=== PATIENT | female | born 1990 | race Two or more races ===

== ENCOUNTER 2016-04-24 22:33 | Inpatient (IN) | payer MEDICAID ==
[~2016-04-24] VITALS: Ht 162.6 cm; Wt 66.2 kg
[~2016-04-24 22:33] MED LIST: HUMALOG SUBCUT; LANTUS SUBCUT
[2016-04-24 23:14] LABS: Basophils # (auto) 0 uL; Basophils % (auto) 0.5 % (0.0-2.0); Eosinophils # (auto) 0 uL; Eosinophils % (auto) 0.1 % (0.0-7.0); Hematocrit 42.7 % (36.0-46.0); Lymphocytes # (auto) 1.1 uL; Lymphocytes % (auto) 10.1 % (10.0-50.0); Mean Corpuscular Hemoglobin 29.7 pg (28.0-32.0); Mean Corpuscular Hgb Conc. 32.7 g/dL (32.0-36.0); Mean Corpuscular Volume 90.7 fL (80.0-100.0); Mean Platelet Volume 6.6 fL (7.4-10.4); Monocytes # (auto) 0.9 uL; Monocytes % (auto) 8.1 % (0.0-12.0); Neutrophils # (auto) 8.6 uL; Neutrophils % (auto) 81.2 % (37.0-80.0); Platelet Count (auto) 459 10^3/uL (140-450); Red Cell Distribution Width 12.9 % (11.6-16.0); White Blood Cell 10.6 10^3/uL (4.4-10.8)
[2016-04-24 23:29] LABS: Albumin 3.2 g/dL (3.4-5.0); BUN/Creatinine Ratio 12.7; Calcium 8.3 mg/dL (8.5-10.1); Potassium 3.6 mmol/L (3.5-5.1)
[2016-04-24 23:38] LABS: Bilirubin, Total 0.3 mg/dL (0.2-1.0); Total Protein 7.1 g/dL (6.4-8.2)
[2016-04-24] MEDS ORDERED: SODIUM CHLORIDE 0.9% 2,000 ML IV ONE (23:45)
[2016-04-25] MEDS ORDERED: ONDANSETRON HCL 4 MG/2 ML VIAL IV ONE
[2016-04-25] MEDS ORDERED: MORPHINE SULFATE 4 MG/ML SYRG IV ONE
[2016-04-25] MEDS ORDERED: SODIUM CHLORIDE 0.9% 1,000 ML IV SCH ×2 (02:50→13:30)
[2016-04-25] MEDS ORDERED: TEMAZEPAM 15 MG CAP PO PRN (03:00)
[2016-04-25] MEDS ORDERED: DEXTROSE (50%) 50ML SYRG IV PRN (03:00)
[2016-04-25] MEDS ORDERED: ACETAMINOPHEN 325 MG TAB PO PRN (03:00)
[2016-04-25] MEDS ORDERED: cefTRIAXone 1GM/50ML D5W 50 ML IV ONE (03:00)
[2016-04-25] MEDS ORDERED: PANTOPRAZOLE SODIUM 40 MG/10 ML VIAL IV ONE (03:00)
[2016-04-25] MEDS: ONDANSETRON HCL 4 MG/2 ML VIAL IV PRN ×5 (03:11→23:04)
[2016-04-25] MEDS: MORPHINE SULF INJ 2 MG/ML SYRINGE 1ML IV PRN ×5 (03:11→23:04)
[2016-04-25 04:00] VITALS: BP 120/70
[2016-04-25] MEDS ORDERED: INSLANTI SC (05:44)
[2016-04-25] MEDS ORDERED: PNEUMOCOCCAL VACC POLYS 25 MCG/0.5 ML VIAL IM ONE (05:45)
[2016-04-25] MEDS: InsuLIN REG 1unit/0.01ml Soln (100units/ml) SC SCH ×3 (06:00→18:00)
[2016-04-25] MEDS: ACCU-CHEK COMFORT CURVE STRIP VI SCH ×3 (06:29→18:27)
[2016-04-25] MEDS ORDERED: D5W/SOD CHLO 0.9% 1,000 ML IV SCH (07:00)
[2016-04-25] MEDS ORDERED: cefTRIAXone 1GM/50ML D5W 50 ML IV SCH (09:00)
[2016-04-25 09:17] VITALS: BP 118/70
[2016-04-25] MEDS: PANTOPRAZOLE SODIUM 40 MG/10 ML VIAL IV SCH (09:21)
[2016-04-25 11:52] LABS: Hepatitis B Surface Antibody Positive
[2016-04-25 13:00] VITALS: BP 115/68
[2016-04-25] MEDS ORDERED: metroNIDAZOLE 500MG/100ML 100 ML IV SCH (14:00)
[2016-04-25] MEDS ORDERED: LACTATED RINGER'S 1,000 ML IV ONE (14:45)
[2016-04-25 17:14] VITALS: BP 118/69
[2016-04-25 21:03] VITALS: BP 115/70
[2016-04-26] MEDS: InsuLIN REG 1unit/0.01ml Soln (100units/ml) SC SCH ×4 (05:34→17:13)
[2016-04-26] MEDS: ACCU-CHEK COMFORT CURVE STRIP VI SCH ×4 (05:34→17:13)
[2016-04-26 05:58] LABS: INR 1.17 (0.9-1.15)
[2016-04-26 06:00] LABS: Basophils # (auto) 0 uL; Basophils % (auto) 0.5 % (0.0-2.0); Eosinophils # (auto) 0.2 uL; Eosinophils % (auto) 2.7 % (0.0-7.0); Hemoglobin 13.4 g/dL (12.2-16.2); Lymphocytes # (auto) 1.5 uL; Lymphocytes % (auto) 21.4 % (10.0-50.0); Mean Corpuscular Hgb Conc. 32.5 g/dL (32.0-36.0); Mean Corpuscular Volume 92.2 fL (80.0-100.0); Mean Platelet Volume 7.2 fL (7.4-10.4); Monocytes # (auto) 0.6 uL; Monocytes % (auto) 9.3 % (0.0-12.0); Neutrophils # (auto) 4.6 uL; Neutrophils % (auto) 66.1 % (37.0-80.0); Platelet Count (auto) 332 10^3/uL (140-450); White Blood Cell 6.9 10^3/uL (4.4-10.8)
[2016-04-26 06:06] LABS: Potassium 3.7 mmol/L (3.5-5.1)
[2016-04-26 06:12] LABS: Albumin 2.5 g/dL (3.4-5.0); Calcium 7.6 mg/dL (8.5-10.1); Magnesium 2.3 mg/dL (1.6-2.6)
[2016-04-26 06:15] LABS: Bilirubin, Total 0.8 mg/dL (0.2-1.0); Total Protein 6.4 g/dL (6.4-8.2)
[2016-04-26 09:00] VITALS: BP 107/64
[2016-04-26] MEDS: PANTOPRAZOLE SODIUM 40 MG/10 ML VIAL IV SCH (09:04)
[2016-04-26] MEDS: ONDANSETRON HCL 4 MG/2 ML VIAL IV PRN ×3 (09:05→19:55)
[2016-04-26] MEDS: MORPHINE SULF INJ 2 MG/ML SYRINGE 1ML IV PRN ×2 (09:06→15:52)
[2016-04-26] MEDS ORDERED: SODIUM CHLORIDE 0.9% 1,000 ML IV SCH (11:00)
[2016-04-26] MEDS: LACTATED RINGER'S 1,000 ML IV SCH ×3 (12:27→19:56)
[2016-04-26 13:00] VITALS: BP 99/59
[2016-04-26 17:00] VITALS: BP 104/62
[2016-04-26] MEDS: HYDROcodone-ACET 5/325MG TAB PO PRN (19:56)
[2016-04-26 21:55] VITALS: BP 97/55
[2016-04-27] MEDS: ACCU-CHEK COMFORT CURVE STRIP VI SCH ×5 (00:20→23:06)
[2016-04-27 05:07] VITALS: BP 101/63
[2016-04-27] MEDS: LACTATED RINGER'S 1,000 ML IV SCH ×3 (05:46→21:20)
[2016-04-27] MEDS: InsuLIN REG 1unit/0.01ml Soln (100units/ml) SC SCH ×5 (05:55→23:26)
[2016-04-27 05:58] LABS: Basophils # (auto) 0 uL; Basophils % (auto) 0.5 % (0.0-2.0); Eosinophils # (auto) 0.4 uL; Eosinophils % (auto) 4.5 % (0.0-7.0); Hematocrit 37.8 % (36.0-46.0); Hemoglobin 12.2 g/dL (12.2-16.2); Lymphocytes # (auto) 1.8 uL; Lymphocytes % (auto) 22.8 % (10.0-50.0); Mean Corpuscular Hemoglobin 29.5 pg (28.0-32.0); Mean Corpuscular Hgb Conc. 32.2 g/dL (32.0-36.0); Mean Corpuscular Volume 91.7 fL (80.0-100.0); Mean Platelet Volume 6.9 fL (7.4-10.4); Monocytes # (auto) 0.9 uL; Monocytes % (auto) 11.8 % (0.0-12.0); Neutrophils # (auto) 4.8 uL; Neutrophils % (auto) 60.4 % (37.0-80.0); Platelet Count (auto) 327 10^3/uL (140-450); Red Cell Distribution Width 12.4 % (11.6-16.0)
[2016-04-27 06:01] LABS: Prothrombin Time 12.2 sec (9.37-12.3)
[2016-04-27 06:08] LABS: INR 1.18 (0.9-1.15)
[2016-04-27 06:30] LABS: Albumin 2.5 g/dL (3.4-5.0); BUN/Creatinine Ratio 21.7; Bilirubin, Total 0.8 mg/dL (0.2-1.0); Calcium 7.7 mg/dL (8.5-10.1); Magnesium 2.2 mg/dL (1.6-2.6); Potassium 3.5 mmol/L (3.5-5.1)
[2016-04-27 09:00] VITALS: BP 104/63
[2016-04-27] MEDS: PANTOPRAZOLE SODIUM 40 MG/10 ML VIAL IV SCH (09:35)
[2016-04-27] MEDS: HYDROcodone-ACET 5/325MG TAB PO PRN ×2 (12:57→23:53)
[2016-04-27 15:00] VITALS: BP 102/56
[2016-04-27 15:59] VITALS: BP 102/67
[2016-04-27 22:16] VITALS: BP 112/72
[2016-04-28] MEDS: LACTATED RINGER'S 1,000 ML IV SCH ×2 (04:24→10:40)
[2016-04-28 04:53] VITALS: BP 104/67
[2016-04-28] MEDS: ACCU-CHEK COMFORT CURVE STRIP VI SCH ×2 (05:05→12:14)
[2016-04-28] MEDS: InsuLIN REG 1unit/0.01ml Soln (100units/ml) SC SCH ×2 (05:11→12:28)
[2016-04-28 07:20] LABS: Albumin 2.3 g/dL (3.4-5.0); BUN/Creatinine Ratio 9.8; Bilirubin, Direct 0.1 mg/dL (0-0.2); Bilirubin, Total 0.3 mg/dL (0.2-1.0); Calcium 7.5 mg/dL (8.5-10.1); Potassium 3.4 mmol/L (3.5-5.1); Total Protein 5.8 g/dL (6.4-8.2)
[2016-04-28 09:00] VITALS: BP 95/58
[2016-04-28] MEDS: PANTOPRAZOLE SODIUM 40 MG/10 ML VIAL IV SCH (10:30)
[2016-04-28] MEDS ORDERED: POTASSIUM CHL 20 Meq TABLET PO ONE (12:45)
[2016-04-28 13:00] VITALS: BP 107/74
== END 2016-04-28 14:50 | disposition home or self-care (01) | DRG 282 ==
LOC: ER 22:33 → EDBD 22:33 → OVERFLOW 22:34 → CENTRAL 04-25 03:56
PROVIDERS: ADMIT Nurse Practitioner; ATTEND Internal Medicine
DX: K85.90 Acute pancreatitis without necrosis or infection, unspecified (principal); R16.0 Hepatomegaly, not elsewhere classified; K75.89 Other specified inflammatory liver diseases; E87.6 Hypokalemia; E10.9 Type 1 diabetes mellitus without complications; R74.0 Nonspecific elevation of levels of transaminase and lactic acid dehydrogenase [LDH]; Z79.4 Long term (current) use of insulin; Z90.49 Acquired absence of other specified parts of digestive tract; Z23 Encounter for immunization
CPT/HCPCS: 36415; 36600; 74176; 74181; 76705; 80053; 80061; 80076; 82010; 82150; 82784; 82805; 82962; 83036; 83690; 83735; 84443; 84702; 85025; 85049; 85610; 86704; 86706; 86708; 86803; 87040; 87340; 96361; 96365; 96375; C9113; J0696; J1815; J2405; J3490; J7042

== ENCOUNTER 2016-07-10 07:51 | Inpatient (IN) | payer MEDICAID ==
[~2016-07-10] VITALS: Ht 162.6 cm; Wt 71.1 kg
[~2016-07-10 07:51] MED LIST changes: +INSLANTI SC; -LANTUS SUBCUT
[2016-07-10] MEDS ORDERED: PROCHLORPERAZINE EDISYLATE 5 MG/ML 2ML VIAL ONE (08:26)
[2016-07-10] MEDS ORDERED: SODIUM CHLORIDE 0.9% 1,000 ML IV ONE (08:34)
[2016-07-10] MEDS ORDERED: SODIUM CHLORIDE 0.9% 1,000 ML IVB ONE (08:44)
[2016-07-10] MEDS ORDERED: PROCHLORPERAZINE EDISYLATE 5 MG/ML 2ML VIAL IV ONE ×2 (08:45)
[2016-07-10 08:46] LABS: Basophils # (auto) 0 uL; Basophils % (auto) 0.2 % (0.0-2.0); Eosinophils # (auto) 0 uL; Eosinophils % (auto) 0.2 % (0.0-7.0); Hematocrit 53.4 % (36.0-46.0); Hemoglobin 16.8 g/dL (12.2-16.2); Lymphocytes # (auto) 1.6 uL; Lymphocytes % (auto) 13.5 % (10.0-50.0); Mean Corpuscular Hemoglobin 29.5 pg (28.0-32.0); Mean Corpuscular Hgb Conc. 31.5 g/dL (32.0-36.0); Mean Corpuscular Volume 93.6 fL (80.0-100.0); Mean Platelet Volume 7.4 fL (7.4-10.4); Monocytes # (auto) 0.5 uL; Monocytes % (auto) 3.9 % (0.0-12.0); Neutrophils # (auto) 9.9 uL; Neutrophils % (auto) 82.2 % (37.0-80.0); Platelet Count (auto) 321 10^3/uL (140-450); Red Cell Distribution Width 14.8 % (11.6-16.0)
[2016-07-10 09:02] LABS: Albumin 3.9 g/dL (3.4-5.0); BUN/Creatinine Ratio 13.8; Bilirubin, Total 1.1 mg/dL (0.2-1.0); Calcium 9.5 mg/dL (8.5-10.1); Potassium 4.8 mmol/L (3.5-5.1); Total Protein 8.9 g/dL (6.4-8.2)
[2016-07-10] MEDS ORDERED: InsuLIN REG 1unit/0.01ml Soln (100units/ml) IV ONE (09:15)
[2016-07-10] MEDS ORDERED: SODIUM CHLORIDE 0.9% 2,000 ML IV ONE (09:15)
[2016-07-10] MEDS ORDERED: InsuLIN R (HUMAN) 100 UNITS in SODIUM CHL 0.9% 99 ML IV SCH (09:17)
[2016-07-10] MEDS ORDERED: DEXTROSE (50%) 50ML SYRG IV PRN ×2 (09:30→14:45)
[2016-07-10] MEDS ORDERED: ONDANSETRON HCL 4 MG/2 ML VIAL IV ONE (10:00)
[2016-07-10] MEDS: ACCU-CHEK COMFORT CURVE STRIP VI SCH ×13 (10:00→22:57)
[2016-07-10 10:34] LABS: Urine Bilirubin Negative (Negative); Urine Blood Negative /uL (Negative); Urine Color Yellow (Yellow); Urine Nitrite Negative (Negative); Urine RBC 1 /hpf (0 - 4); Urine Squamous Epithelial Cell FEW /hpf (<5); Urine Urobilinogen Normal (Negative)
[2016-07-10 10:35] LABS: Urine Glucose 4+ mg/dL (Normal); Urine Ketone 4+ (Negative)
[2016-07-10] MEDS: SODIUM CHLORIDE 0.9% 1,000 ML IV SCH ×3 (11:24→21:29)
[2016-07-10] MEDS ORDERED: VANCOMYCIN PER PHARMACY 0 MG IV SCH (14:00)
[2016-07-10] MEDS ORDERED: TEMAZEPAM 15 MG CAP PO PRN (14:00)
[2016-07-10] MEDS ORDERED: MORPHINE SULF INJ 2 MG/ML SYRINGE 1ML IV PRN ×2 (14:00)
[2016-07-10] MEDS ORDERED: ACETAMINOPHEN 325 MG TAB PO PRN (14:00)
[2016-07-10] MEDS ORDERED: DOCUSATE SOD 100 MG CAP PO PRN (14:00)
[2016-07-10] MEDS ORDERED: NITROGLYCERIN 0.4 MG SL TAB SL PRN (14:00)
[2016-07-10] MEDS ORDERED: cefTRIAXone 1GM/50ML D5W 50 ML IV ONE (14:00)
[2016-07-10] MEDS: InsuLIN R (HUMAN) 100 UNITS in SODIUM CHL 0.9% 99 ML IV SCH (14:59)
[2016-07-10] MEDS: VANCOMYCIN 1GM/250ML D5W 250 ML IV SCH (15:05)
[2016-07-10 15:19] LABS: REFLEX LACTIC ACID YES OR NO YES
[2016-07-10] MEDS: ONDANSETRON HCL 4 MG/2 ML VIAL IV PRN (17:37)
[2016-07-10 20:23] LABS: Lactic Acid w/Reflex 3.7 mmol/L (0.4-2.0)
[2016-07-10 20:53] LABS: REFLEX LACTIC ACID YES OR NO YES
[2016-07-10] MEDS: FAMOTIDINE 20 MG TAB PO SCH (21:29)
[2016-07-11] VITALS (7 sets, daily range): BP systolic 93–113; BP diastolic 51–61
[2016-07-11] MEDS: ACCU-CHEK COMFORT CURVE STRIP VI SCH ×13 (00:10→17:34)
[2016-07-11] MEDS: SODIUM CHLORIDE 0.9% 1,000 ML IV SCH ×3 (02:02→11:33)
[2016-07-11] MEDS: InsuLIN R (HUMAN) 100 UNITS in SODIUM CHL 0.9% 99 ML IV SCH ×4 (08:05→11:36)
[2016-07-11] MEDS: VANCOMYCIN 1GM/250ML D5W 250 ML IV SCH (09:00)
[2016-07-11] MEDS: ONDANSETRON HCL 4 MG/2 ML VIAL IV PRN ×3 (09:19→22:04)
[2016-07-11] MEDS: FAMOTIDINE 20 MG TAB PO SCH ×2 (09:58→22:03)
[2016-07-11] MEDS: MULTIPLE VITAMIN TAB PO SCH (09:58)
[2016-07-11 10:54] LABS: Basophils # (auto) 0.1 uL; Basophils % (auto) 0.4 % (0.0-2.0); Eosinophils # (auto) 0 uL; Eosinophils % (auto) 0.1 % (0.0-7.0); Hematocrit 38.2 % (36.0-46.0); Hemoglobin 12.5 g/dL (12.2-16.2); Lymphocytes # (auto) 2.1 uL; Mean Corpuscular Hemoglobin 29.8 pg (28.0-32.0); Mean Corpuscular Hgb Conc. 32.8 g/dL (32.0-36.0); Mean Corpuscular Volume 90.8 fL (80.0-100.0); Mean Platelet Volume 6.3 fL (7.4-10.4); Monocytes # (auto) 1.3 uL; Monocytes % (auto) 7.3 % (0.0-12.0); Neutrophils # (auto) 14.1 uL; Neutrophils % (auto) 80.2 % (37.0-80.0); Platelet Count (auto) 138 10^3/uL (140-450); Red Cell Distribution Width 14.8 % (11.6-16.0); White Blood Cell 17.5 10^3/uL (4.4-10.8)
[2016-07-11] MEDS ORDERED: cefTRIAXone 1GM/50ML D5W 50 ML IV SCH (11:00)
[2016-07-11 11:12] LABS: Albumin 2.4 g/dL (3.4-5.0); BUN/Creatinine Ratio 10.4; Bilirubin, Total 0.3 mg/dL (0.2-1.0); Calcium 6.6 mg/dL (8.5-10.1); Potassium 3.4 mmol/L (3.5-5.1); Total Protein 6.2 g/dL (6.4-8.2)
[2016-07-11] MEDS ORDERED: POTASSIUM CHL 20 Meq TABLET PO ONE (11:45)
[2016-07-11] MEDS ORDERED: INSULIN DETEMIR(LEVEMIR) 1unit/0.01ml Soln (100units/ml) SC ONE (11:45)
[2016-07-11] MEDS: InsuLIN REG 1unit/0.01ml Soln (100units/ml) SC SCH ×2 (12:11→17:34)
[2016-07-11] MEDS ORDERED: InsuLIN R (HUMAN) 100 UNITS in SODIUM CHL 0.9% 99 ML IV SCH (14:43)
[2016-07-11] MEDS: HYDROcodone-ACET 5/325MG TAB PO PRN ×2 (17:37→22:02)
[2016-07-11] MEDS: INSULIN DETEMIR(LEVEMIR) 1unit/0.01ml Soln (100units/ml) SC SCH (22:00)
[2016-07-11] MEDS: DEXTROSE (50%) 50ML SYRG IV PRN (22:03)
[2016-07-12] MEDS: ONDANSETRON HCL 4 MG/2 ML VIAL IV PRN (01:51)
[2016-07-12] MEDS: DEXTROSE (50%) 50ML SYRG IV PRN (01:51)
[2016-07-12 05:10] VITALS: BP 113/67
[2016-07-12 05:43] LABS: Basophils # (auto) 0 uL; Basophils % (auto) 0.4 % (0.0-2.0); Eosinophils # (auto) 0.1 uL; Eosinophils % (auto) 1.2 % (0.0-7.0); Hematocrit 35.9 % (36.0-46.0); Hemoglobin 11.8 g/dL (12.2-16.2); Lymphocytes # (auto) 2.1 uL; Lymphocytes % (auto) 22.9 % (10.0-50.0); Mean Corpuscular Hemoglobin 29.5 pg (28.0-32.0); Mean Corpuscular Hgb Conc. 32.9 g/dL (32.0-36.0); Mean Corpuscular Volume 89.6 fL (80.0-100.0); Mean Platelet Volume 6.5 fL (7.4-10.4); Monocytes # (auto) 0.9 uL; Monocytes % (auto) 10.1 % (0.0-12.0); Neutrophils % (auto) 65.4 % (37.0-80.0); Platelet Count (auto) 69 10^3/uL (140-450); Red Cell Distribution Width 14.9 % (11.6-16.0); White Blood Cell 9.1 10^3/uL (4.4-10.8)
[2016-07-12] MEDS: InsuLIN REG 1unit/0.01ml Soln (100units/ml) SC SCH ×4 (05:43→18:06)
[2016-07-12] MEDS: ACCU-CHEK COMFORT CURVE STRIP VI SCH ×4 (05:43→18:06)
[2016-07-12] MEDS: INSULIN DETEMIR(LEVEMIR) 1unit/0.01ml Soln (100units/ml) SC SCH (05:43)
[2016-07-12 05:53] LABS: Calcium 6.7 mg/dL (8.5-10.1)
[2016-07-12 06:00] LABS: Albumin 2.4 g/dL (3.4-5.0); BUN/Creatinine Ratio 6.7; Bilirubin, Total 0.3 mg/dL (0.2-1.0); Total Protein 5.6 g/dL (6.4-8.2)
[2016-07-12] MEDS ORDERED: POTASSIUM CHL 20 Meq TABLET PO ONE (07:45)
[2016-07-12 08:12] VITALS: BP 107/60
[2016-07-12 08:36] LABS: Magnesium 2.3 mg/dL (1.6-2.6); Phosphorus 1.3 mg/dL (2.5-4.90)
[2016-07-12 08:49] LABS: Acetaminophen < 2.0 ug/mL (10-30); Salicylate < 1.7 mg/dL (2.8-20.0)
[2016-07-12] MEDS ORDERED: POTASSIUM PHOSPHATE 44 MEQ in SODIUM CHL 0.9% 250 ML IV ONE (10:15)
[2016-07-12] MEDS: FAMOTIDINE 20 MG TAB PO SCH ×2 (10:27→22:01)
[2016-07-12] MEDS: MULTIPLE VITAMIN TAB PO SCH (10:27)
[2016-07-12] MEDS: THIAMINE INJ 100 MG, MULTIPLE VITAMIN 10 ML, FOLIC ACID 1 MG, MAGNESIUM SULF SDV 50% 8 ... IV SCH ×5 (12:00)
[2016-07-12 12:08] VITALS: BP 115/69
[2016-07-12 17:04] VITALS: BP 105/67
[2016-07-12 20:00] VITALS: BP 119/74
[2016-07-12] MEDS: HYDROcodone-ACET 5/325MG TAB PO PRN (20:26)
[2016-07-12 21:30] VITALS: BP 119/74
[2016-07-13] MEDS: InsuLIN REG 1unit/0.01ml Soln (100units/ml) SC SCH ×3 (00:04→12:00)
[2016-07-13] MEDS: ACCU-CHEK COMFORT CURVE STRIP VI SCH ×3 (00:04→12:00)
[2016-07-13 05:21] VITALS: BP 101/64
[2016-07-13] MEDS ORDERED: INSULIN DETEMIR(LEVEMIR) 1unit/0.01ml Soln (100units/ml) SC SCH (07:00)
[2016-07-13 07:25] LABS: Potassium 2.9 mmol/L (3.5-5.1)
[2016-07-13 07:56] LABS: Albumin 2.4 g/dL (3.4-5.0); BUN/Creatinine Ratio 10.9; Bilirubin, Total 0.3 mg/dL (0.2-1.0); Calcium 7.8 mg/dL (8.5-10.1); Phosphorus 1.8 mg/dL (2.5-4.90); Potassium 3.3 mmol/L (3.5-5.1); Total Protein 6.2 g/dL (6.4-8.2)
[2016-07-13 09:00] VITALS: BP 112/71
[2016-07-13] MEDS ORDERED: MULTTAB99 PO (09:57)
[2016-07-13] MEDS ORDERED: POTASSIUM PHOSPHATE 44 MEQ in SODIUM CHL 0.9% 250 ML IV ONE (10:00)
[2016-07-13] MEDS: MULTIPLE VITAMIN TAB PO SCH (10:46)
[2016-07-13] MEDS: FAMOTIDINE 20 MG TAB PO SCH (10:46)
[2016-07-13 11:06] VITALS: BP 112/71
[2016-07-13] MEDS: THIAMINE INJ 100 MG, MULTIPLE VITAMIN 10 ML, FOLIC ACID 1 MG, MAGNESIUM SULF SDV 50% 8 ... IV SCH ×5 (12:00)
[2016-07-13 13:00] VITALS: BP 116/65
[2016-07-13 16:46] VITALS: BP 109/39
== END 2016-07-13 17:55 | disposition home or self-care (01) | DRG 420 ==
LOC: ER 07:56 → TELE 07:57 → DOU IN ICU 23:55 → TELE-CENTR 07-11 18:29 → CENTRAL 07-12 00:03
PROVIDERS: ADMIT Internal Medicine; ATTEND Internal Medicine
DX: E10.10 Type 1 diabetes mellitus with ketoacidosis without coma (principal); J90 Pleural effusion, not elsewhere classified; R65.10 Systemic inflammatory response syndrome (SIRS) of non-infectious origin without acute organ dysfunction; N17.9 Acute kidney failure, unspecified; E10.21 Type 1 diabetes mellitus with diabetic nephropathy; D75.1 Secondary polycythemia; E83.39 Other disorders of phosphorus metabolism; N18.3 Chronic kidney disease, stage 3 (moderate); R16.0 Hepatomegaly, not elsewhere classified; R79.89 Other specified abnormal findings of blood chemistry; E87.6 Hypokalemia; E86.0 Dehydration; E10.22 Type 1 diabetes mellitus with diabetic chronic kidney disease; Z91.14 Patient's other noncompliance with medication regimen; Z83.3 Family history of diabetes mellitus; Z90.49 Acquired absence of other specified parts of digestive tract
CPT/HCPCS: 36415; 76705; 80053; 80329; 81001; 82010; 82150; 82728; 82962; 83036; 83540; 83550; 83605; 83690; 83735; 84100; 84702; 85025; 87040; 87081; 87086; 93005; 96361; 96365; 96375; 99291; J0696; J1815; J2405

== ENCOUNTER 2018-05-14 07:39 | Emergency (ER) | payer MEDICAID ==
[~2018-05-14] VITALS: Ht 152.4 cm; Wt 70.8 kg
[2018-05-14 08:31] VITALS: BP 15/76
== END 2018-05-14 18:29 | disposition home or self-care (01) ==
LOC: ER 07:39
DX: E10.40 Type 1 diabetes mellitus with diabetic neuropathy, unspecified (principal); Z79.4 Long term (current) use of insulin; Z90.49 Acquired absence of other specified parts of digestive tract
CPT/HCPCS: 82962

== ENCOUNTER 2020-01-05 17:46 | Inpatient (IN) | payer MEDICAID ==
[~2020-01-05] VITALS: Ht 162.6 cm; Wt 74.0 kg
[2020-01-05] MEDS ORDERED: ETOMIDATE (2MG/ML) 20ML VIAL IV ONE (18:30)
[2020-01-05 18:40] LABS: Basophils # (auto) 0.1 10 ^3/uL (0-0.2); Basophils % (auto) 0.8 % (0.0-2.0); Eosinophils # (auto) 0 10 ^3/uL (0-0.8); Eosinophils % (auto) 0.2 % (0.0-7.0); Hematocrit 36.4 % (36.0-46.0); Hemoglobin 12.5 g/dL (12.2-16.2); Lymphocytes # (auto) 1.7 10 ^3/uL (0.4-5.4); Lymphocytes % (auto) 16.5 % (10.0-50.0); Mean Corpuscular Hemoglobin 32.4 pg (28.0-32.0); Mean Corpuscular Hgb Conc. 34.2 g/dL (32.0-36.0); Mean Corpuscular Volume 94.8 fL (80.0-100.0); Monocytes # (auto) 0.7 10 ^3/uL (0-1.3); Monocytes % (auto) 7.1 % (0.0-12.0); Neutrophils # (auto) 7.9 10 ^3/uL (1.6-8.6); Neutrophils % (auto) 75.4 % (37.0-80.0); Nucleated Red Blood Cells % 0.1 %; Platelet Count (auto) 377 10^3/uL (140-450); Red Blood Cells 3.84 10^6/uL (4.0-5.20); Red Cell Distribution Width 12.9 % (11.8-14.3); White Blood Cell 10.5 10^3/uL (4.4-10.8)
[2020-01-05 19:00] LABS: Albumin 3.9 g/dL (3.4-5.0); Calcium 8.4 mg/dL (8.5-10.1); Potassium 3.9 mmol/L (3.5-5.1)
[2020-01-05 19:04] LABS: BUN/Creatinine Ratio 14.6; Bilirubin, Total 0.2 mg/dL (0.2-1.0); Total Protein 6.6 g/dL (6.4-8.2)
[2020-01-05 19:41] LABS: Partial Thromboplastin Time 24.8 sec (23.0-31.2)
[2020-01-05] MEDS ORDERED: MORPHINE SULF INJ 2 MG/ML SYRINGE 1ML IV PRN (21:15)
[2020-01-05] MEDS ORDERED: NITROGLYCERIN 0.4 MG SL TAB SL PRN (21:15)
[2020-01-05] MEDS ORDERED: DEXTROSE (50%) 50ML SYRG IV PRN (21:15)
[2020-01-05] MEDS ORDERED: ACETAMINOPHEN 325 MG TAB PO PRN (21:15)
[2020-01-05] MEDS ORDERED: DOCUSATE SOD 100 MG CAP PO PRN (21:15)
[2020-01-05] MEDS: SOD CHL 0.45% 1,000 ML IV SCH (21:54)
[2020-01-05] MEDS: InsuLIN REG 1unit/0.01ml Soln (100units/ml) SC SCH (21:55)
[2020-01-05] MEDS: ACCU-CHEK COMFORT CURVE STRIP VI SCH (21:55)
[2020-01-05] MEDS: MORPHINE SULFATE 4 MG/ML SYR/VIAL IV PRN (21:57)
[2020-01-05] MEDS ORDERED: LOPERAMIDE HCL 2 MG CAP PO PRN (22:45)
[2020-01-05 23:34] VITALS: BP 122/70
--- NOTE | 2020-01-05 23:34 | NUR ---
MS admit from ER ROBB CABRAL admitted to MS after SBAR received. Patient alert and oriented x4 to DANIELLE SMITH RN primary RN, 205A, and unit policies regarding patient care and visiting hours. Patient weighed by bedscale and encouraged to call if they need something. All questions and concerns addressed, patient verbalized understanding.
[2020-01-05] MEDS: HYDROcodone-ACET 5/325MG TAB PO PRN (23:56)
[2020-01-06] MEDS ORDERED: LEV100T PO (00:36)
[2020-01-06] MEDS: MORPHINE SULFATE 4 MG/ML SYR/VIAL IV PRN ×2 (02:20→06:22)
--- NOTE | 2020-01-06 02:20 | NUR ---
Pain meds Offered and accepted pain medication. Please see emar.
--- NOTE | 2020-01-06 04:41 | NUR ---
Patient asleep right now. Right leg elevated. No Sob and distress seen.
[2020-01-06 05:00] VITALS: BP 116/67
[2020-01-06 05:36] LABS: Basophils # (auto) 0.1 10 ^3/uL (0-0.2); Basophils % (auto) 0.7 % (0.0-2.0); Eosinophils # (auto) 0 10 ^3/uL (0-0.8); Eosinophils % (auto) 0.2 % (0.0-7.0); Hematocrit 34.7 % (36.0-46.0); Hemoglobin 11.7 g/dL (12.2-16.2); Lymphocytes # (auto) 2.3 10 ^3/uL (0.4-5.4); Lymphocytes % (auto) 26.6 % (10.0-50.0); Mean Corpuscular Hgb Conc. 33.8 g/dL (32.0-36.0); Mean Corpuscular Volume 94.6 fL (80.0-100.0); Monocytes # (auto) 0.7 10 ^3/uL (0-1.3); Monocytes % (auto) 8.1 % (0.0-12.0); Neutrophils # (auto) 5.6 10 ^3/uL (1.6-8.6); Neutrophils % (auto) 64.4 % (37.0-80.0); Nucleated Red Blood Cells % 0.1 %; Platelet Count (auto) 334 10^3/uL (140-450); Red Blood Cells 3.66 10^6/uL (4.0-5.20); Red Cell Distribution Width 12.6 % (11.8-14.3); White Blood Cell 8.8 10^3/uL (4.4-10.8)
[2020-01-06 05:52] LABS: Potassium 3.2 mmol/L (3.5-5.1)
[2020-01-06 06:01] LABS: Albumin 3.3 g/dL (3.4-5.0); BUN/Creatinine Ratio 23.9; Bilirubin, Total 0.3 mg/dL (0.2-1.0); Calcium 7.8 mg/dL (8.5-10.1); Total Protein 5.8 g/dL (6.4-8.2)
--- NOTE | 2020-01-06 06:54 | NUR ---
Obtained an order for potassium replacement 40 meq KCl 1x dose from hospitalist. Potassium level is 3.2. will carry order.
[2020-01-06] MEDS: ACCU-CHEK COMFORT CURVE STRIP VI SCH ×4 (07:00→22:01)
[2020-01-06] MEDS: InsuLIN REG 1unit/0.01ml Soln (100units/ml) SC SCH ×6 (07:00→22:01)
[2020-01-06] MEDS: POTASSIUM CHL 20MEQ/100ML 100 ML IV SCH ×2 (07:46→08:42)
[2020-01-06] MEDS ORDERED: POTASSIUM CHL 20 Meq TABLET PO ONE (08:00)
--- NOTE | 2020-01-06 08:00 | NUR ---
OPENING SHIFT NOTE: PATIENT RESTING IN BED, RESPIRATIONS EVEN AND UNLABORED. A/OX4 AWAKE AND ABLE TO RECALL EVENTS THAT LED TO FRACTURE. UPDATED ON PLAN OF CARE, VERBALIZED UNDERSTANDING, CALL LIGHT WITHIN REACH, FALL PRECAUTIONS IN PLACE. WILL CONTINUE TO MONITOR.
--- NOTE | 2020-01-06 08:05 | NUR ---
MD SHARMILA PARTIDA
[2020-01-06] MEDS: HYDROcodone-ACET 5/325MG TAB PO PRN ×2 (08:30→13:52)
[2020-01-06] MEDS: ENOXAPARIN SOD 40 MG/0.4 ML SYRINGE SC SCH (08:30)
--- NOTE | 2020-01-06 08:41 | NUR ---
PATIENT TAKEN DOWN TO OR.
--- NOTE | 2020-01-06 08:41 | NUR ---
LITURGICAL MUSIC DIRECTOR TECH MADE AWARE PATIENT IS IN PRE-OP FOR ORDERED TYPE AND SCREEN.
[2020-01-06 09:00] VITALS: BP 103/60
[2020-01-06] MEDS ORDERED: ROPIVACAINE 0.5% (5MG/ML) 20ML AMPULE IJ ONE (09:28)
[2020-01-06] MEDS ORDERED: ceFAZolin 1GM/50ML 50 ML IV ONE (09:31)
[2020-01-06 09:35] LABS: Urine Bacteria MOD /hpf (None Seen); Urine Blood Negative /uL (Negative); Urine Mucus FEW (None Seen); Urine Specific Gravity 1.024 (1.001-1.035); Urine WBC 106 /hpf (0 - 5)
[2020-01-06] MEDS ORDERED: SUCCINYLCHOLINE CHLORIDE 20 MG/ML 10ML VIAL IV ONE (09:35)
[2020-01-06] MEDS ORDERED: fentaNYL CITRATE 100 MCG/2 ML VL ONE (09:37)
[2020-01-06] MEDS ORDERED: MIDAZOLAM HCL 1MG/1ML-2 ML VIAL ONE (09:37)
[2020-01-06] MEDS ORDERED: PROPOFOL 10 MG/ML 20 ML IV ONE (09:44)
[2020-01-06] MEDS ORDERED: ROCURONIUM 10MG/ML 10ML VIAL IV ONE (09:45)
[2020-01-06] MEDS ORDERED: cefTRIAXone 1GM/50ML D5W 50 ML IV ONE (10:15)
[2020-01-06] MEDS ORDERED: POTASSIUM CHLORIDE 20 MEQ, LIDOCAINE 1% (LOCAL ANESTH.) 2 ML in SODIUM CHL 0.9% 100 ML IV ONE (10:15)
[2020-01-06] MEDS ORDERED: NEOMYCIN-BACITRACIN-POLYM 15GM TOP OINT TOP ONE (10:56)
[2020-01-06] MEDS ORDERED: hydrALAZINE HCL 20 MG/ML VL IV PRN (11:00)
[2020-01-06] MEDS ORDERED: HYDROmorphone HCL 2 MG/ML VL IV PRN (11:00)
[2020-01-06] MEDS ORDERED: ONDANSETRON HCL 4 MG/2 ML VIAL IV PRN (11:00)
[2020-01-06] MEDS ORDERED: ePHEDrine SULFATE 50 MG/ML AMP IV PRN (11:00)
[2020-01-06] MEDS ORDERED: ONDANSETRON HCL 4 MG/2 ML VIAL ONE (11:42)
[2020-01-06] MEDS: SOD CHL 0.45% 1,000 ML IV SCH (11:57)
[2020-01-06 13:00] VITALS: BP 107/66
[2020-01-06 16:56] VITALS: BP 109/66
[2020-01-06] MEDS ORDERED: OXYCODONE W/ ACETAMINOPHEN 5/325MG TABLET PO PRN (17:15)
[2020-01-06] MEDS ORDERED: SODIUM CHLORIDE 0.9% 250 ML IV ONE (17:15)
[2020-01-06] MEDS: HYDROmorphone HCL 2 MG/ML VL IV PRN ×2 (17:54→23:14)
[2020-01-06] MEDS: SODIUM CHLORIDE 0.9% 1,000 ML IV SCH (17:54)
--- NOTE | 2020-01-06 19:02 | NUR ---
CARE ENDORSED TO NOC RN.
--- NOTE | 2020-01-06 21:30 | NUR ---
Called/paged Dr. DOLL called re:PT'S COMPLAINED OF DISCOMFORT, NUMBNESS AND PAIN THAT IS NOT RELIEVED BY THE PAIN PILL . Waiting for call back. Continue care.
--- NOTE | 2020-01-06 21:30 | NUR ---
PRIMARY RN KALANI CONCERNED RE: PT'S COMPLAINED OF DISCOMFORT, NUMBNESS AND PAIN THAT IS NOT RELIEVED BY THE PAIN PILL AND REQUESTING FOR THE CHARGE TO ASSESS PT FO COMPARTMENT SYNDROME SYMPTOMS. WENT IN TO CHECK ON PT. FOUND LAYING FLAT ON BED WITH RIGHT LOWER LEG SLIGHTLY ELEVATED. PER PT, SHE SUDDENLY FELT NUMBNESS, TIGHTNESS ON THE LOWER LEG. INSTRUCTED PT TO MOVE TOES AND SLIGHTLY ABLE TO DO SO. CHECKED FOR NAIL BED COLOR, PAIL COLOR, PALPABLE PEDAL PULSE. TOES COOL TO TOUCH AND CAPILLARY REFILL < 3 %. PT THEN STATED SHE FEELS LIKE "ITS VERY TIGHT AND PAINFUL". INFORMED PT I WILL REMOVE SAI BANDAGE TO PROPERLY ASSESSED THE AFFECTED SITE FOR ANY ABNORMALITY OR BLEEDING, PT THEN STATED " I THINK YOU SHOULD CALL THE DOCTOR BEFORE YOU REMOVE THE DRESSING". I EXPLAINED TO PT WE NEED REMOVE THE SAI BANDAGE FIRST FOR US TO ASSESS IT AND SO WE CAN EXPLAINED IT BETTER TO THE MD SINCE THE MD IS NOT HERE TO SEE IT". UNWRAPPED SAI BANDAGE, AND SAW A MODERATE AMOUNT OF RED BLOOD ON THE ANKLE AREA AND SHOWED TO PRIMARY RN. PT WAS UPSET AGAIN DUE TO UNWRAPPING THE BANDAGE. AND AGAIN I EXPLAINED THE NECESSITY OF DOING SO AND INSTRUCTED PRIMARY LIZBETH URIARTE TO NOTIFY DR. DOLL REGARDING THIS. WRAPPED THE AFFECTED LEG GENTLY AND NEATLY BACK AND POSITIONED PT COMFORTABLY BACK IN BED.
[2020-01-06 22:00] VITALS: BP 113/68
--- NOTE | 2020-01-06 22:00 | NUR ---
NOTED AT THIS TIME ANTIBIOTIC FROM PREVIOUS SHIFT HANG BUT NOT RUN CALL PHARMACIST INSTRUCTED TO DISCARD ANTIBIOTIC AND HANG 22OO Addendum: 01/07/20 at 0311 by KALANI SCHERER RN NOTE IS FOR WRONG PT
--- NOTE | 2020-01-06 22:45 | NUR ---
GAVE PT DILAUDID 0.5 MG AT 2314 PT STATES PAIN IS 10/10 IN RIGHT FOOT REASSESS PT AT 2344 PT STATES PAIN IS 0/10 WILL CONTINUE TO MONITOR
[2020-01-07] MEDS: SODIUM CHLORIDE 0.9% 1,000 ML IV SCH ×2 (03:29→14:08)
[2020-01-07 05:00] VITALS: BP 108/53
[2020-01-07] MEDS: LEVOTHYROXINE SODIUM 100 MCG TAB PO SCH (05:12)
[2020-01-07] MEDS: ACCU-CHEK COMFORT CURVE STRIP VI SCH ×4 (05:12→21:29)
[2020-01-07] MEDS: InsuLIN REG 1unit/0.01ml Soln (100units/ml) SC SCH ×5 (05:12→21:30)
[2020-01-07] MEDS: HYDROmorphone HCL 2 MG/ML VL IV PRN ×5 (05:13→21:29)
[2020-01-07 05:44] LABS: Basophils # (auto) 0.1 10 ^3/uL (0-0.2); Basophils % (auto) 0.7 % (0.0-2.0); Eosinophils # (auto) 0 10 ^3/uL (0-0.8); Eosinophils % (auto) 0.1 % (0.0-7.0); Hematocrit 32.5 % (36.0-46.0); Lymphocytes # (auto) 1.4 10 ^3/uL (0.4-5.4); Mean Corpuscular Hemoglobin 32.2 pg (28.0-32.0); Mean Corpuscular Volume 94.7 fL (80.0-100.0); Monocytes # (auto) 0.7 10 ^3/uL (0-1.3); Monocytes % (auto) 8.4 % (0.0-12.0); Neutrophils # (auto) 6.5 10 ^3/uL (1.6-8.6); Neutrophils % (auto) 74.8 % (37.0-80.0); Platelet Count (auto) 295 10^3/uL (140-450); Red Blood Cells 3.43 10^6/uL (4.0-5.20); Red Cell Distribution Width 12.7 % (11.8-14.3); White Blood Cell 8.7 10^3/uL (4.4-10.8)
[2020-01-07 05:59] LABS: Calcium 7.5 mg/dL (8.5-10.1); Potassium 3.6 mmol/L (3.5-5.1)
[2020-01-07 06:05] LABS: BUN/Creatinine Ratio 12.2
--- NOTE | 2020-01-07 06:41 | NUR ---
END OF SHIFT NOTE WILL ENDORSE PT CARE TO DAY SHIFT RN. PT IS AOX4,NO S/S OF DISTRESS OR SOB
--- NOTE | 2020-01-07 08:15 | NUR ---
OPENING SHIFT NOTE: PATIENT RESTING IN BED, RESPIRATIONS EVEN AND UNLABORED. A/OX4 AWAKE AND ABLE TO RECALL EVENTS FROM [facility] REGARDING DRESSING REMOVAL, UPDATED ON PLAN OF CARE INFORMED PATIENT MD DOLL WAS INFORMED OF BLEEDING, VERBALIZED UNDERSTANDING, CALL LIGHT WITHIN REACH, FALL PRECAUTIONS IN PLACE. WILL CONTINUE TO MONITOR.
[2020-01-07 09:00] VITALS: BP 114/64
--- NOTE | 2020-01-07 09:00 | NUR ---
MD DOLL IN UNIT ASSESSED BLEEDING OF INCISION. DRESSING CHANGED BY AND THIS RN. NON-WEIGHT BEARING REINFORCED, AND PATIENT NOW BEDREST, WITH BEDPAN. ABLE TO VERBALIZE UNDERSTANDING.
[2020-01-07] MEDS ORDERED: MUPIROCIN 2% OINT 15gm or 22gm TOP ONE (09:30)
[2020-01-07] MEDS: ENOXAPARIN SOD 40 MG/0.4 ML SYRINGE SC SCH (09:56)
[2020-01-07] MEDS: cefTRIAXone 1GM/50ML D5W 50 ML IV SCH (09:56)
--- NOTE | 2020-01-07 12:20 | NUR ---
MD SHARMILA PARTIDA, NEED FOR NEW FIBERGLASS SPLINT. CALLED ORTHO UNIT AND PODIATRY UNIT.
[2020-01-07 13:00] VITALS: BP 97/51
--- NOTE | 2020-01-07 13:50 | NUR ---
JONATHAN GARCÍA AT BEDSIDE PERFORMING NEW SPLIT CAST
--- NOTE | 2020-01-07 13:52 | NUR ---
Assessment Patient is a 29-year-old female who is alert and oriented. Prior to admission patient lived home with family and functioned independently. Per patient prior to admission she could care for her own ADLs. Per patient she will return home to her prior living arrangements post discharge and family will transport patient home. Advised patient there is a social service consult for a wheelchair. Informed patient clinical information will be faxed to [facility]. Informed patient she has a right to participate in all discharge planning. Patient verbalized understanding and agreed to discharge plan. faxed clinical information to [employer] requesting for wheelchair to be deliver to bedside. Addendum: 01/07/20 at 1353 by DYANA WEBER Amended: Links added.
--- NOTE | 2020-01-07 15:43 | NUR ---
D/C Planning Placed follow up called to [facility] spoke to Boaz with the [employer] [facility] [employer] department. Per Boaz order has been received and approved. Wheelchair to be deliver to front lobby between 16:00-17:30.
[2020-01-07 17:00] VITALS: BP 104/63
[2020-01-07] MEDS: ONDANSETRON HCL 4 MG/2 ML VIAL IV PRN ×2 (17:16→21:29)
--- NOTE | 2020-01-07 19:03 | NUR ---
CARE ENDORSED TO NOC RN.
--- NOTE | 2020-01-07 19:15 | NUR ---
Opening Shift Note Assumed care of patient, awake and alert. No S/S of distress/SOB. Pt complaining of pain level 8/10 at right lower leg, will medicate as prescribed. No drainage noted at surgical site, dressing clean, dry and intact. Safety measures in place, bed in lowest locked position, bed rails raised x2, call light within reach. All needs addressed at this time. Instructed on POC and to call for assist PRN, will continue to monitor for changes Q1hr and PRN.
[2020-01-07 22:00] VITALS: BP 115/67
[2020-01-08] MEDS: SODIUM CHLORIDE 0.9% 1,000 ML IV SCH ×2 (00:16→09:22)
[2020-01-08] MEDS: HYDROmorphone HCL 2 MG/ML VL IV PRN ×3 (01:30→10:56)
[2020-01-08] MEDS: ONDANSETRON HCL 4 MG/2 ML VIAL IV PRN ×3 (01:30→10:55)
[2020-01-08 05:29] VITALS: BP 110/60
[2020-01-08 06:29] LABS: Basophils # (auto) 0 10 ^3/uL (0-0.2); Basophils % (auto) 0.4 % (0.0-2.0); Eosinophils # (auto) 0 10 ^3/uL (0-0.8); Eosinophils % (auto) 0.1 % (0.0-7.0); Hematocrit 31.9 % (36.0-46.0); Hemoglobin 10.9 g/dL (12.2-16.2); Lymphocytes # (auto) 1.3 10 ^3/uL (0.4-5.4); Lymphocytes % (auto) 13.6 % (10.0-50.0); Mean Corpuscular Hemoglobin 32.7 pg (28.0-32.0); Mean Corpuscular Hgb Conc. 34.1 g/dL (32.0-36.0); Mean Corpuscular Volume 95.9 fL (80.0-100.0); Monocytes # (auto) 0.8 10 ^3/uL (0-1.3); Monocytes % (auto) 7.9 % (0.0-12.0); Neutrophils # (auto) 7.7 10 ^3/uL (1.6-8.6); Nucleated Red Blood Cells % 0.1 %; Platelet Count (auto) 310 10^3/uL (140-450); Red Blood Cells 3.33 10^6/uL (4.0-5.20); Red Cell Distribution Width 12.3 % (11.8-14.3); White Blood Cell 9.8 10^3/uL (4.4-10.8)
[2020-01-08] MEDS: LEVOTHYROXINE SODIUM 100 MCG TAB PO SCH (06:29)
[2020-01-08] MEDS: ACCU-CHEK COMFORT CURVE STRIP VI SCH ×2 (06:41→12:00)
[2020-01-08] MEDS: InsuLIN REG 1unit/0.01ml Soln (100units/ml) SC SCH ×2 (06:43→12:00)
--- NOTE | 2020-01-08 07:30 | NUR ---
Opening Shift Note Assumed care of patient, awake, alert, and oriented. No S/S of distress/SOB or pain. Bed in lowest/locked position, bed rails up x2, call light within reach. Instructed on POC and to call for assist PRN. Will continue to monitor for changes Q1hr and PRN.
[2020-01-08 09:00] VITALS: BP 111/57
[2020-01-08] MEDS: cefTRIAXone 1GM/50ML D5W 50 ML IV SCH (09:22)
--- NOTE | 2020-01-08 10:30 | NUR ---
MD ROUNDS DR SPANGLER AT BEDSIDE. NEW ORDERS RECEIVED/WILL CARRY OUT. WILL CONTINUE TO MONITOR
[2020-01-08 13:00] VITALS: BP 105/56
[2020-01-08 13:32] VITALS: BP 105/56
--- NOTE | 2020-01-08 15:06 | NUR ---
Discharge instructions given as ordered. Encourage to follow up with PMD as instructed. All questions and concerns addressed. Patient verbalized understanding. IV removed with catheter intact, pressure dressing applied Patient taken to vehicle via wheelchair with all personal belongings, accompanied by staff. No distress noted at time of departure.
== END 2020-01-08 15:05 | disposition home or self-care (01) | DRG 313 ==
LOC: ER 17:46 → EDBD 17:46 → OVERFLOW 17:47 → CENTRAL 23:36
PROVIDERS: ADMIT Nurse Practitioner Family; ATTEND Internal Medicine
PROC: 0QSG04Z Reposition Right Tibia with Internal Fixation Device, Open Approach (ICD-10-PCS; 2020-01-06)
PROC: 0QSJ04Z Reposition Right Fibula with Internal Fixation Device, Open Approach (ICD-10-PCS; principal; 2020-01-06 09:30)
DX: S82.851A Displaced trimalleolar fracture of right lower leg, initial encounter for closed fracture (principal); E11.649 Type 2 diabetes mellitus with hypoglycemia without coma; N39.0 Urinary tract infection, site not specified; Z90.49 Acquired absence of other specified parts of digestive tract; Z80.9 Family history of malignant neoplasm, unspecified; Z79.4 Long term (current) use of insulin; Z83.3 Family history of diabetes mellitus; G93.40 Encephalopathy, unspecified; E03.9 Hypothyroidism, unspecified; W18.30XA Fall on same level, unspecified, initial encounter; Y93.89 Activity, other specified; Y92.89 Other specified places as the place of occurrence of the external cause; Y99.0 Civilian activity done for income or pay
CPT/HCPCS: 36415; 71045; 73600; 73610; 80048; 80053; 80061; 81001; 81025; 82962; 83036; 84702; 85025; 85610; 85730; 86850; 86900; 86901; 87045; 87086; 87427; 93005; C1713; G0378; J0330; J0690; J0696; J1815; J2001; J2250; J2405; J2704

== ENCOUNTER 2021-09-23 16:09 | Emergency (ER) | payer MEDICAID ==
[~2021-09-23] VITALS: Ht 162.6 cm; Wt 66.2 kg
[~2021-09-23 16:09] MED LIST changes: +LEV100T PO
[2021-09-23 18:04] LABS: Basophils # (auto) 0 10 ^3/uL (0-0.2); Basophils % (auto) 0.3 % (0.0-2.0); Eosinophils # (auto) 0 10 ^3/uL (0-0.8); Hematocrit 38.4 % (36.0-46.0); Hemoglobin 12.8 g/dL (12.2-16.2); Lymphocytes # (auto) 1.8 10 ^3/uL (0.4-5.4); Lymphocytes % (auto) 23.3 % (10.0-50.0); Mean Corpuscular Hemoglobin 30.9 pg (28.0-32.0); Mean Corpuscular Hgb Conc. 33.4 g/dL (32.0-36.0); Mean Corpuscular Volume 92.6 fL (80.0-100.0); Monocytes # (auto) 0.6 10 ^3/uL (0-1.3); Monocytes % (auto) 7.8 % (0.0-12.0); Neutrophils # (auto) 5.1 10 ^3/uL (1.6-8.6); Neutrophils % (auto) 68.6 % (37.0-80.0); Nucleated Red Blood Cells % 0.1 %; Red Blood Cells 4.15 10^6/uL (4.0-5.20); Red Cell Distribution Width 12.9 % (11.8-14.3); White Blood Cell 7.5 10^3/uL (4.4-10.8)
[2021-09-23 18:19] LABS: Albumin 3.4 g/dL (3.4-5.0); BUN/Creatinine Ratio 8.4; Calcium 8.2 mg/dL (8.5-10.1); Potassium 3.8 mmol/L (3.5-5.1)
[2021-09-23 18:25] LABS: Bilirubin, Total 0.1 mg/dL (0.2-1.0); Total Protein 6.5 g/dL (6.4-8.2)
[2021-09-23 20:35] LABS: Urine Bacteria NONE SEEN /hpf (None Seen); Urine Blood Negative /uL (Negative); Urine WBC 10 /hpf (0 - 5)
[2021-09-23] MEDS ORDERED: ACETAMINOPHEN 325 MG TAB PO PRN (21:30)
[2021-09-23] MEDS ORDERED: ONDANSETRON HCL 4 MG/2 ML VIAL IV PRN (21:30)
[2021-09-23] MEDS ORDERED: HYDROcodone-ACET 5/325MG TAB PO PRN (21:30)
[2021-09-23] MEDS ORDERED: DEXTROSE (50%) 50ML SYRG IV PRN (21:30)
[2021-09-23] MEDS ORDERED: DOCUSATE SOD 100 MG CAP PO PRN (21:30)
[2021-09-23] MEDS ORDERED: ACCU-CHEK COMFORT CURVE STRIP VI SCH (22:00)
[2021-09-23] MEDS ORDERED: InsuLIN REG 1unit/0.01ml Soln (100units/ml) SC SCH (22:00)
[2021-09-23] MEDS ORDERED: SODIUM CHLOR 0.9% PF (SALINE LOCK) 10ML VIAL/SYR IV SCH (22:00)
[2021-09-23 23:00] VITALS: BP 128/77
[2021-09-23] MEDS ORDERED: CEFD300C2 PO (23:07)
[2021-09-24] MEDS ORDERED: LEVOTHYROXINE SODIUM 100 MCG TAB PO SCH (07:00)
[2021-09-24] MEDS ORDERED: cefTRIAXone 1GM/50ML D5W 50 ML IV SCH (09:00)
[2021-09-24] MEDS ORDERED: FAMOTIDINE (10MG/ML) 2ML VL IV SCH (10:00)
[2021-09-24] MEDS ORDERED: ENOXAPARIN SOD 40 MG/0.4 ML SYRINGE SC SCH (10:00)
== END 2021-09-23 23:46 | disposition home or self-care (01) ==
LOC: EDBD 16:09 → ER 16:09
DX: E11.649 Type 2 diabetes mellitus with hypoglycemia without coma (principal); R11.10 Vomiting, unspecified; E03.9 Hypothyroidism, unspecified; Z90.49 Acquired absence of other specified parts of digestive tract; Z79.4 Long term (current) use of insulin; Z79.899 Other long term (current) drug therapy; Z20.822 Contact with and (suspected) exposure to COVID-19
CPT/HCPCS: 36415; 70486; 71045; 80053; 81001; 82962; 83735; 85025; 87086; 87426; 93005; 96372; 99285; J1815

== ENCOUNTER 2022-09-10 23:47 | Inpatient (IN) | payer MEDICAID ==
[~2022-09-10] VITALS: Ht 170.2 cm; Wt 80.0 kg
[~2022-09-10 23:47] MED LIST changes: +CEFD300C2 PO
[2022-09-11] MEDS ORDERED: LORazepam 2MG/ML-1ML VIAL ONE (00:21)
[2022-09-11] MEDS ORDERED: diphenhdrAMINE HCL 50 MG/1 ML VL ONE (00:24)
[2022-09-11 00:46] LABS: Basophils # (auto) 0.1 10 ^3/uL (0-0.2); Basophils % (auto) 0.7 % (0.0-2.0); Eosinophils # (auto) 0 10 ^3/uL (0-0.8); Hematocrit 37.9 % (36.0-46.0); Hemoglobin 12.9 g/dL (12.2-16.2); Lymphocytes # (auto) 4.5 10 ^3/uL (0.4-5.4); Mean Corpuscular Hemoglobin 30.3 pg (28.0-32.0); Monocytes # (auto) 0.7 10 ^3/uL (0-1.3); Monocytes % (auto) 9.5 % (0.0-12.0); Neutrophils # (auto) 2.4 10 ^3/uL (1.6-8.6); Neutrophils % (auto) 31.4 % (37.0-80.0); Nucleated Red Blood Cells % 0.1 %; Red Blood Cells 4.26 10^6/uL (4.0-5.20); White Blood Cell 7.7 10^3/uL (4.4-10.8)
[2022-09-11 00:48] LABS: Urine Bacteria FEW /hpf (None Seen); Urine Blood Negative /uL (Negative); Urine Mucus FEW (None Seen); Urine Specific Gravity 1.018 (1.001-1.035); Urine WBC 1 /hpf (0 - 5)
[2022-09-11 00:49] LABS: Lymphocytes % (auto) 58.4 % (10.0-50.0)
[2022-09-11 01:00] LABS: Alcohol, Urine < 3.0 mg/dL (0-10); Amphetamine Screen, Urine NEGATIVE (NEGATIVE); Cannabinoid Screen, Urine NEGATIVE (NEGATIVE)
[2022-09-11 01:02] LABS: Barbiturate Scree,Urine NEGATIVE (NEGATIVE); Benzodiazephine Screen, Urine NEGATIVE (NEGATIVE); Cocaine Screen, Urine NEGATIVE (NEGATIVE); Opiate Scree,Urine NEGATIVE (NEGATIVE); Phencyclidine Screen, Urine NEGATIVE (NEGATIVE)
[2022-09-11 01:02] LABS: INR 1.02 (0.9-1.15); Partial Thromboplastin Time 21.9 sec (24.6-33.4)
[2022-09-11 01:09] LABS: Alanine Aminotransferase 19 U/L (13-56); Albumin 4.1 g/dL (3.4-5.0); Anion Gap 11 (5-15); BUN/Creatinine Ratio 11.4 (10.0-20.0); Blood Alcohol < 3.0 mg/dL (0-5); Blood Urea Nitrogen 10 mg/dL (7-18); Calcium 8.6 mg/dL (8.5-10.1); Carbon Dioxide 26 mmol/L (21-32); Chloride 103 mmol/L (98-107); GFR African American 95 mL/min; GFR Non-African American 79 mL/min; Glucose 215 mg/dL (74-106); Potassium 4.1 mmol/L (3.5-5.1); Sodium 140 mmol/L (136-145)
[2022-09-11 01:12] LABS: Alkaline Phosphatase 57 U/L (45-117); Aspartate Aminotransferase 16 U/L (15-37); Bilirubin, Total 0.1 mg/dL (0.2-1.0); Lactic Acid w/Reflex 5.4 mmol/L (0.4-2.0); Total Protein 7.1 g/dL (6.4-8.2)
[2022-09-11] MEDS ORDERED: HALOPERIDOL LACTATE 5 MG/ML INJ VIAL IM ONE (01:30)
[2022-09-11] MEDS ORDERED: diphenhdrAMINE HCL 50 MG/1 ML VL IV ONE (02:15)
[2022-09-11] MEDS ORDERED: LORazepam 2MG/ML-1ML VIAL IV ONE (02:15)
[2022-09-11] MEDS ORDERED: IOHEXOL 350 MG/ML 100ML IJ ONE ×2 (02:59→07:04)
[2022-09-11] MEDS ORDERED: DOCUSATE SOD 100 MG CAP PO PRN (07:00)
[2022-09-11] MEDS ORDERED: ACETAMINOPHEN 325 MG TAB PO PRN (07:00)
[2022-09-11] MEDS ORDERED: MORPHINE SULFATE INJ 2 MG/ml SYRG IV PRN (07:00)
[2022-09-11] MEDS ORDERED: HYDROcodone-ACET 5/325MG TAB PO PRN (07:00)
[2022-09-11] MEDS: SODIUM CHLORIDE 0.9% 1,000 ML IV SCH ×2 (07:00→23:47)
[2022-09-11] MEDS ORDERED: DEXTROSE (50%) 50ML SYRG IV PRN (07:00)
[2022-09-11] MEDS: ACCU-CHEK COMFORT CURVE STRIP VI SCH ×4 (07:00→22:34)
[2022-09-11] MEDS ORDERED: LORazepam 2MG/ML-1ML VIAL IV PRN ×2 (07:00→21:45)
[2022-09-11] MEDS ORDERED: ONDANSETRON HCL 4 MG/2 ML VIAL IV PRN (07:00)
[2022-09-11] MEDS ORDERED: NITROGLYCERIN 0.4 MG SL TAB SL PRN (07:00)
[2022-09-11 07:13] LABS: Basophils # (auto) 0.1 10 ^3/uL (0-0.2); Basophils % (auto) 0.5 % (0.0-2.0); Eosinophils # (auto) 0 10 ^3/uL (0-0.8); Hematocrit 36.9 % (36.0-46.0); Hemoglobin 12.7 g/dL (12.2-16.2); Lymphocytes # (auto) 1.4 10 ^3/uL (0.4-5.4); Lymphocytes % (auto) 10.4 % (10.0-50.0); Mean Corpuscular Hemoglobin 30.4 pg (28.0-32.0); Mean Corpuscular Hgb Conc. 34.4 g/dL (32.0-36.0); Mean Corpuscular Volume 88.5 fL (80.0-100.0); Monocytes # (auto) 0.8 10 ^3/uL (0-1.3); Neutrophils # (auto) 10.8 10 ^3/uL (1.6-8.6); Neutrophils % (auto) 83.1 % (37.0-80.0); Red Blood Cells 4.17 10^6/uL (4.0-5.20); Red Cell Distribution Width 12.7 % (11.8-14.3); White Blood Cell 13.1 10^3/uL (4.4-10.8)
[2022-09-11] MEDS: LEVOTHYROXINE SODIUM 100 MCG TAB PO SCH (07:41)
[2022-09-11] MEDS: InsuLIN REG 1unit/0.01ml Soln (100units/ml) SC SCH ×3 (07:44→17:00)
[2022-09-11 08:01] LABS: Albumin 4.2 g/dL (3.4-5.0); Calcium 8.7 mg/dL (8.5-10.1); Potassium 3.7 mmol/L (3.5-5.1)
[2022-09-11 08:08] LABS: BUN/Creatinine Ratio 9.9 (10.0-20.0); Bilirubin, Total 0.3 mg/dL (0.2-1.0); Total Protein 6.7 g/dL (6.4-8.2)
[2022-09-11] MEDS: ENOXAPARIN SOD 40 MG/0.4 ML SYRINGE SC SCH (11:24)
[2022-09-11] MEDS: FAMOTIDINE (10MG/ML) 2ML VL IV SCH ×2 (11:24→22:50)
[2022-09-11] MEDS ORDERED: InsuLIN REG 1unit/0.01ml Soln (100units/ml) SC SCH (22:00)
[2022-09-12 06:03] LABS: Basophils # (auto) 0 10 ^3/uL (0-0.2); Basophils % (auto) 0.8 % (0.0-2.0); Eosinophils # (auto) 0 10 ^3/uL (0-0.8); Hematocrit 37.3 % (36.0-46.0); Hemoglobin 12.6 g/dL (12.2-16.2); Lymphocytes # (auto) 2.4 10 ^3/uL (0.4-5.4); Lymphocytes % (auto) 44.9 % (10.0-50.0); Mean Corpuscular Hemoglobin 30.1 pg (28.0-32.0); Mean Corpuscular Hgb Conc. 33.8 g/dL (32.0-36.0); Mean Corpuscular Volume 89.1 fL (80.0-100.0); Monocytes # (auto) 0.4 10 ^3/uL (0-1.3); Monocytes % (auto) 7.5 % (0.0-12.0); Neutrophils # (auto) 2.5 10 ^3/uL (1.6-8.6); Neutrophils % (auto) 46.8 % (37.0-80.0); Nucleated Red Blood Cells % 0.1 %; Red Blood Cells 4.19 10^6/uL (4.0-5.20); White Blood Cell 5.4 10^3/uL (4.4-10.8)
[2022-09-12 06:22] LABS: Albumin 3.7 g/dL (3.4-5.0); Calcium 7.7 mg/dL (8.5-10.1); Potassium 3.4 mmol/L (3.5-5.1)
[2022-09-12 06:26] LABS: BUN/Creatinine Ratio 13.9 (10.0-20.0); Bilirubin, Total 0.2 mg/dL (0.2-1.0); Total Protein 6.3 g/dL (6.4-8.2)
[2022-09-12] MEDS: ACCU-CHEK COMFORT CURVE STRIP VI SCH ×4 (06:40→18:07)
[2022-09-12] MEDS: InsuLIN REG 1unit/0.01ml Soln (100units/ml) SC SCH ×3 (06:41→17:00)
[2022-09-12] MEDS: LEVOTHYROXINE SODIUM 100 MCG TAB PO SCH (06:47)
[2022-09-12] MEDS: FAMOTIDINE (10MG/ML) 2ML VL IV SCH (10:27)
[2022-09-12] MEDS: ENOXAPARIN SOD 40 MG/0.4 ML SYRINGE SC SCH (10:27)
[2022-09-12] MEDS ORDERED: POTASSIUM CHL 20 Meq TABLET PO ONE (10:45)
[2022-09-12] MEDS ORDERED: LEVO88TA2 PO (16:15)
[2022-09-12] MEDS: SODIUM CHLORIDE 0.9% 1,000 ML IV SCH (16:20)
[2022-09-12 17:24] VITALS: BP 110/66
== END 2022-09-12 19:15 | disposition home or self-care (01) | DRG 115 ==
LOC: EDUNIT# 23:47 → EDBD 23:47 → ER 23:47 → TELE 09-11 06:47 → TELE-WESTW 09-12 15:31
PROVIDERS: ADMIT Nurse Practitioner Family; ATTEND Internal Medicine
DX: S09.90XA Unspecified injury of head, initial encounter (principal); F07.81 Postconcussional syndrome; E10.65 Type 1 diabetes mellitus with hyperglycemia; R26.81 Unsteadiness on feet; R41.1 Anterograde amnesia; I10 Essential (primary) hypertension; E03.9 Hypothyroidism, unspecified; E87.6 Hypokalemia; R55 Syncope and collapse; W18.39XA Other fall on same level, initial encounter; Y93.89 Activity, other specified; Y92.89 Other specified places as the place of occurrence of the external cause; Z83.3 Family history of diabetes mellitus; Y99.8 Other external cause status
CPT/HCPCS: 36415; 70450; 70496; 70551; 71045; 71250; 72125; 78582; 80053; 80307; 80320; 81001; 81025; 82962; 83605; 83735; 84443; 84484; 85025; 85379; 85610; 85730; 87040; 93005; 93306; 93886; 95819; 96372; 96374; 96375; G0378; J1815; J3490

== ENCOUNTER 2024-10-16 09:50 | Day surgery (SDC) | payer MEDICAID ==
[2024-10-09 12:48] LABS: Hematocrit 40.3 % (36.0-46.0); Hemoglobin 13.8 g/dL (12.2-16.2); Mean Corpuscular Hemoglobin 29.0 pg (28.0-32.0); Mean Corpuscular Volume 84.6 fL (80.0-100.0); Nucleated Red Blood Cells % 0.0 %
[2024-10-09 13:22] LABS: INR 0.99 (0.9-1.15); Partial Thromboplastin Time 24.9 SEC (24.5-34.5); Prothrombin Time 10.5 sec (9.3-11.8)
[2024-10-09 13:28] LABS: Urine Protein, UAD Negative (Negative)
[2024-10-09 13:38] LABS: Alanine Aminotransferase 19 U/L (7-40); Albumin 4.2 g/dL (3.2-4.8); Alkaline Phosphatase 73 U/L (46-116); Anion Gap 8 (5-15); BUN/Creatinine Ratio 10.4 (10.0-20.0); Bilirubin, Total 0.5 mg/dL (0.2-1.0); Blood Urea Nitrogen 8 mg/dL (9-23); Calcium 9.4 mg/dL (8.7-10.4); Carbon Dioxide 28 mmol/L (20-31); Chloride 105 mmol/L (98-107); Glucose 150 mg/dL (74-106); Potassium 3.9 mmol/L (3.5-5.1); Sodium 141 mmol/L (136-145); Total Protein 6.4 g/dL (5.7-8.2)
[~2024-10-16] VITALS: Ht 165.1 cm; Wt 72.6 kg
[~2024-10-16 09:50] MED LIST changes: -CEFD300C2 PO; -LEV100T PO; +LEVO-849 PO; +LEVO88TA2 PO
[2024-10-16] MEDS ORDERED: CELECOXIB 100 MG CAP ONE (15:09)
[2024-10-16] MEDS ORDERED: GABAPENTIN 300 MG CAP ONE (15:10)
[2024-10-16] MEDS ORDERED: ACETAMINOPHEN 500 MG TAB or CAP PO ONE (15:10)
[2024-10-16] MEDS: GABAPENTIN 300 MG CAP PO ONE (15:30)
[2024-10-16] MEDS: ACETAMINOPHEN 500 MG TAB or CAP PO ONE (15:30)
[2024-10-16] MEDS: CELECOXIB 100 MG CAP PO ONE (15:30)
[2024-10-16] MEDS ORDERED: fentaNYL CITRATE 100 MCG/2 ML VL ONE (18:28)
[2024-10-16] MEDS ORDERED: MIDAZOLAM HCL 2MG/2ML 2ml VIAL (1mg/ml) ONE (18:28)
[2024-10-16] MEDS ORDERED: LIDOCAINE 2% (LOCAL ANESTH.) PF 5ml SDV ONE (18:28)
[2024-10-16] MEDS ORDERED: PROPOFOL 10 MG/ML 20 ML IV ONE (18:28)
[2024-10-16] MEDS ORDERED: ONDANSETRON HCL 4 MG/2 ML VIAL ONE (18:28)
[2024-10-16] MEDS: ceFAZolin 2 GM/D5W50ml 50 ML IV ONE (19:00)
[2024-10-16] MEDS: BUPIVACAINE 0.5% MPF INJ 30ML SDV IJ ONE (19:30)
[2024-10-16] MEDS ORDERED: HYDROmorphone HCL 2 MG/ML VL/or syr ONE (19:51)
[2024-10-16 20:24] VITALS: PULSE 102; RESP 14; TEMP 97.4; O2SAT 100
--- NOTE | 2024-10-16 20:29 | DVHOP2 ---
Operative Report - 2 Report Details Date: 10/16/24 Preop Diagnosis: 1. Right foot pes planus 2. Right foot painful hardware 3. Right foot ankle malunion 4. Right foot pain Postop Diagnosis: Same as preop Surgeon: Kaye Garduno MD Anesthesiologist: See anesthesia Anesthesia: General Implant: Arthrex calcaneal slide plate and screws Arthrex 10 mm Lange wedge Arthrex FiberTak suture anchor x2 Consent: The patient was informed of the risks and benefits of the procedure. These include but are not limited to complications of anesthesia, postoperative infection, incomplete relief of symptoms, recurrence of symptoms, damage to blood vessels, nerves and tendons, deep venous thrombosis, pulmonary embolism and possible need for repeat surgery in the future. Complications: None Estimated Blood Loss: 50 mL Fluids: See anesthesia Findings: Consistent with diagnosis Indications for Surgery: Worsening right foot pain Name of Procedure Performed 1. Right medial calcaneal slide (77530) 2. Right lange osteotomy (10560) 3. Right foot kidner procedure (96087) 4. Right foot deltoid repair (74287) Procedure Details Procedure Details: PRE-PROCEDURE INFORMATION: In the pre-op holding area, the extremity to be operated on was clearly marked and the patient verified correct laterality of the marking. The patient was transferred to the OR table and placed in a supine position. A timeout was performed in which identification of the correct patient, procedure, location, and materials was done. The right foot and leg were prepped and draped in normal sterile fashion. The foot and leg were exsanguinated and the thigh tourniquet was inflated to 250 mmHg. DESCRIPTION OF PROCEDURE: Attention was directed to the right lateral heel where a 5-6 cm longitudinal incision was made along the lateral aspect of the calcaneus. The incision was deepened through sharp dissection care was taken to avoid any neurovascular tendinous structures. The periosteum on the lateral calcaneus was then elevated using a periosteal elevator. A sagittal saw osteotomy was made posterior to the posterior facet. The posterior tuberosity was then shifted proximally 10 mm medially. A pre contoured calcaneal plate was selected and fixed with locking screws under fluoroscopic guidance confirming good alignment and fixation. A separate incision was made 5 cm oblique proximal to the calcaneocuboid joint on the lateral side. Incision was deepened through sharp and blunt dissection, care was taken to avoid any neurovascular tendinous structures. Transverse ost eotomy was made proximally whenever cm proximal to the calcaneocuboid joint using a microsagittal saw. A 10 mL premeasured allograft wedge was inserted into the defect. No internal fixation was used. The graft was stable under tension. The periosteum was closed tightly over the graft to prevent displacement. A 4cm linear incision was made over the navicular. The incision was deepened through sharp and blunt dissection, care was taken to avoid any neurovascular tendinous structures. The distal stump was reflected from partial aspect of the navicular. Using a sagittal saw, the prominent navicular was then removed. The tendon was then advanced and reattached to the understood was in the way to the bone using a soft tissue anchor FiberTak. The tendon sheath was then closed over the repair. The medial incision was then lengthened to gain access to the deltoid ligament. The incision was deepened through sharp and blunt dissection, care was taken to avoid any neurovascular structures. It was noted that there was damage to the superficial and deep deltoid ligaments. Using a Arthrex FiberTak, the soft tissue was anchor placed into the medial malleolus. The deep and superficial deltoid ligaments were repaired, and sutured in a mattress fashion using the F iberTak suture and 2-0 Vicryl. It was noted after the repair of the deltoid ligament and advancement of the posterior tibial tendon that there was decreased laxity on the medial aspect. All surgical wounds were irrigated copiously with saline and closed in layers with the aforementioned suture material. A dry sterile dressing was placed on the surgical extremity. The patient was placed in a cam boot POSTOPERATIVE INFORMATION: The patient tolerated the above noted procedure and anesthesia well and was transferred to the PACU with vital signs stable, and vascular status intact with capillary refill intact to all digits. Postoperative instructions reviewed in detail with the patient with written instructions provided. Patient will return to clinic in approximately 10-14 days for first postoperative visit. Patient has the number of the clinic and was instructed to call prior to that time should any problems, questions, or concerns arise. Condition Good Disposition 2 Home KAYE GARDUNO DPM Oct 16, 2024 20:29
[2024-10-16] MEDS ORDERED: HYDROmorphone HCL 2 MG/ML VL/or syr IV PRN (20:30)
[2024-10-16] MEDS ORDERED: ACETAMINOPHEN IV 1000 MG/100ML (10MG/ML) IV ONE (20:30)
[2024-10-16] MEDS ORDERED: ACETAMINOPHEN IV 100 ML IV ONE (20:35)
[2024-10-16 20:55] VITALS: PULSE 102; RESP 14; O2SAT 100
[2024-10-16] MEDS: ONDANSETRON HCL 4 MG/2 ML VIAL IV ONE (20:55)
[2024-10-16 21:20] VITALS: BP 125/65; PULSE 97; RESP 14; O2SAT 98
== END 2024-10-16 21:55 | disposition home or self-care (01) ==
LOC: SUR 09:50
PROVIDERS: ATTEND Podiatrist
DX: M21.41 Flat foot [pes planus] (acquired), right foot (principal); T84.84XA Pain due to internal orthopedic prosthetic devices, implants and grafts, initial encounter; S82.891P Other fracture of right lower leg, subsequent encounter for closed fracture with malunion; M19.071 Primary osteoarthritis, right ankle and foot; F41.9 Anxiety disorder, unspecified; Z79.890 Hormone replacement therapy; Z79.899 Other long term (current) drug therapy; Z98.890 Other specified postprocedural states; Z83.3 Family history of diabetes mellitus; Z84.89 Family history of other specified conditions; X58.XXXD Exposure to other specified factors, subsequent encounter
CPT/HCPCS: 27695; 28238; 28300; 36415; 80053; 81001; 82962; 84702; 85025; 85610; 85730; C1713; J0690; J1100; J1171; J2003; J2250; J2405; J2704; J3010; J3490; J0131

== ENCOUNTER 2024-10-23 15:34 | Inpatient (IN) | payer MEDICAID ==
[~2024-10-23] VITALS: Ht 165.1 cm; Wt 72.5 kg
--- NOTE | 2024-10-23 15:50 | ED.PDOC ---
GI ASSESSMENT HPI Comments HPI: 34 y/o F, BIBA, with PMHx of DM presents to the ED for CC of nausea/vomiting. EMS reports, patient is coming from home where she c/o nausea and vomiting x4days. EMS reports, patient tried Zofran and had no relief, Zofran was given again in the field with no change in symptoms. Patient endorses, recently having a surgical [id number] ago and right foot surgery x1week after; believes symptoms to be non-related to either procedure. Patient denies fever, chills, sweats, excessive thirst, or urinary frequency. No other associated symptoms or modifying factors present at this time. Patient denies any complaints regarding her extremity surgery or pertinent to her . Patient denies abdominal pain. Past Medical history: DM Past Surgical history: RIGHT FOOT, SURGICAL , cholecystectomy Medications: DOXYCYCLINE Social History: Denies smoking, ETOH, and drug use. Allergies: NKA HPI: Poor Historian. HPI: Poor Historian. Nausea and vomiting nonbilious nonbloody REVIEW OF SYSTEMS: CONSTITUTIONAL: Denies acute: fever, diaphoresis, chills, HEAD: Denies acute: headache, photophobia Eyes: Denies acute: Double vision, vision loss, eye pain, eye discharge. EARS: Denies acute: tinnitus, hearing loss, ear discharge, ear pain, THROAT: Denies acute: sore throat, swelling, difficulty swallowing , pain with swallowing, change in voice. NECK: Denies acute: neck pain, neck swelling, stiff neck. HEART: Denies acute : chest pain, palpitations, LUNGS: Denies acute: SOB, wheezing, cough, hemoptysis ABDOMEN: Denies acute: abdominal pain, diarrhea, melena , hematemesis, hematochezia SKIN: Denies acute: rash, redness, lesions, itchiness. EXTREMITIES: Denies acute: calf pain, numbness, tingling, weakness, denies pain in extremity. Denies acute: Low back pain. Neuro: Denies acute: focal neurological deficit, motor or sensory focal neurological deficit, tremors, seizure like activity, confusion, dizziness, change in mental status, loss of bowel or bladder function, cauda equina like symptoms. : Denies acute: dysuria, hematuria, flank pain, increase in urinary frequency. PSYCH: Denies acute: hallucination, suicidal ideation, homicidal ideation. FEMALE: Denies acute: abnormal vaginal bleeding, foul odor, unusual discharge. PHYSICAL EXAM: General: ----[id number]----acute distress, awake and alert. Head: normocephalic, atraumatic. Neck: supple, trachea is midline, no swelling. Throat: Normal phonation. Eyes:, no erythema, no purulent discharge, no proptosis, no icterus. Heart: regular rate, regular rhythm, no significant murmur appreciated. Lungs: no apparent respiratory distress, Able to speak in full sentences. No wheezing, no rhonchi, no crackles. No stridors Clear to auscultation bilaterally. Abdomen: non tender to palpation, non distended, soft, no guarding, no rebound, + bowel sounds. Neuro: Awake, Alert, oriented to name, self, situation, follows commands GCS=15. Speech is normal. Skin: no petechia, no purpura, no cyanosis, non-pale, not jaundice. Lower extremities: --no - Pitting edema no deformity, no focal swelling, no calf TTP. Makes eye contact. moves all four extremities. Face: no apparent facial droop. No nuchal rigidity, Kernig's sign, Brudzinski's sign, no meningeal signs. ED COURSE: DISCLAIMER: This medical document was created using an electronic medical record system with voice recognition software and computerized dictation system. Although this document has been carefully reviewed, there might still be some phonetic and typographical errors. Occasional wrong-word or "sound-alike" substitutions may have occurred due to the inherent limitations of voice recognition software. These areas are purely typographical due to imperfections of the software programs and do not reflect any compromise in the patient's medical care. Please read the chart carefully and recognize, using context, where these substitutions have occurred. Time Seen by MD: 15:30 Reviewed Notes: Nurses Notes, Medications, Allergies Allergies: Coded Allergies: Metoclopramide (Unverified Allergy, Unknown, pruritis, jaw twitch , 10/08/24) Home Meds Reported Medications Levothyroxine Sodium (Synthroid) 88 Mcg Tab, 1 TAB PO DAILY, #30 TAB 5 Refills 09/12/22 Levothyroxine Sodium (SYNTHROID TABLET) 100 Mcg Tb, 1 TAB PO DAILY, #30 TAB 5 Refills 01/06/20 Insulin Glargine (Lantus) 100 Units/Ml Vial, 42 UNITS SC HS, INJ 10/24/16 [Humalog] No Conflict Check, 1 UNIT SUBCUT AC 11/26/09 Information Source: Patient Mode of Arrival: EMS Timing: Days Duration: Since onset Prehospital treatment: None Quality: None Vomitus: Watery Stool: Normal Severity: Moderate Recent: None Recent Hx of: None Pain Location: None Modifying Factors: Nothing Associated sign and symptoms: Nausea, Vomiting Was a procedure done? Was a procedure done?: No GI differential Dx Differential Diagnosis: Gastritis/PUD, Gastroenteritis, Electrolyte Imbalance, Food Poisoning, Bacterial, Parasitic, Viral, Other (DDX include Diverticulitis, colitis, gastroenteritis, acute abdomen, SBO, enteritis, constipation, volvulus, appendicitis, Gallbladder disease, choledocolithiasis, ascending cholangitis, pancreatitis, intraAbdominal mass/neoplasm, hepatitis, UTI, pylonephritis, kidney stone, aneurysm, dissection, Inflammatory bowel disease, gastroparesis, ischemic bowel, ovarian torsion, ovarian cyst/mass, tubo-ovarian abscess, , ectopic , PID, STD.) X-Ray, Labs, Meds, VS Vital Signs Date Time Temp Pulse Resp B/P (MAP) Pulse Ox O2 Delivery O2 Flow Rate FiO2 10/23/24 20:00 86 10/23/24 19:56 98.1 114 18 144/82 (102) 98 98.1 10/23/24 19:56 114 20 97 Room Air* 0 21 10/23/24 18:00 64 18 133/77 (95) 98 10/23/24 17:30 72 18 98 Room Air* 0 21 10/23/24 17:23 98.0 88 20 132/98 (109) 95 98.0 10/23/24 16:04 82 20 135/56 (82) 100 Lab Test 10/23/24 18:50 10/23/24 17:16 10/23/24 15:57 Range/Units Urine Color Light-yellow Yellow Urine Clarity Turbid H Clear Urine pH 8.5 5.0-9.0 Urine Specific Sachse 1.015 1.001-1.035 Urine Protein Negative Negative Urine Ketones 1+ H Negative Urine Blood 2+ H Negative /uL Urine Nitrite Negative Negative Urine Bilirubin Negative Negative Urine Urobilinogen Normal Negative mg/dL Urine Leukocyte Esterase Negative Negative /uL Urine RBC 30 0 - 4 /hpf Urine Microscopic WBC 2 0-5 /HPF Urine Squamous Epithelial Cells Mod <5 /hpf Urine Bacteria None seen None Seen /hpf Urine Mucus Few None Seen Urine Glucose 4+ H Normal mg/dL Urine Opiates Screen Neg NEGATIVE Urine Fentanyl Screen Neg NEGATIVE Urine Barbiturates Screen Neg NEGATIVE Urine Phencyclidine Screen Neg NEGATIVE Urine Amphetamines Screen Neg NEGATIVE Urine Benzodiazepines Screen Neg NEGATIVE Urine Cocaine Screen Neg NEGATIVE Urine Cannabinoids Screen Pos NEGATIVE POC Glucose 251 H 70-106 mg/dl White Blood Count 10.2 4.4-10.8 10^3/uL Red Blood Count 4.55 4.0-5.20 10^6/uL Hemoglobin 13.4 12.2-16.2 g/dL Hematocrit 39.2 36.0-46.0 % Mean Corpuscular Volume 86.2 80.0-100.0 fL Mean Corpuscular Hemoglobin 29.4 28.0-32.0 pg Mean Corpuscular Hemoglobin Concent 34.1 32.0-36.0 g/dL Red Cell Distribution Width 14.4 H 11.8-14.3 % Platelet Count 439 140-450 10^3/uL Mean Platelet Volume 6.6 L 6.9-10.8 fL Neutrophils (%) (Auto) 78.3 37.0-80.0 % Lymphocytes (%) (Auto) 14.8 10.0-50.0 % Monocytes (%) (Auto) 5.6 0.0-12.0 % Eosinophils (%) (Auto) 0.1 0.0-7.0 % Basophils (%) (Auto) 1.2 0.0-2.0 % Neutrophils # (Auto) 8.0 1.6-8.6 10 ^3/uL Lymphocytes # (Auto) 1.5 0.4-5.4 10 ^3/uL Monocytes # (Auto) 0.6 0-1.3 10 ^3/uL Eosinophils # (Auto) 0 0-0.8 10 ^3/uL Basophils # (Auto) 0.1 0-0.2 10 ^3/uL Nucleated Red Blood Cells 0.0 % Sodium Level 137 136-145 mmol/L Potassium Level 4.4 3.5-5.1 mmol/L Chloride Level 99 98-107 mmol/L Carbon Dioxide Level 27 20-31 mmol/L Anion Gap 11 5-15 Blood Urea Nitrogen 18 9-23 mg/dL Creatinine 0.80 0.550-1.02 mg/dL Glomerular Filtration Rate Calc 98 >90 mL/min BUN/Creatinine Ratio 22.5 H 10.0-20.0 Serum Glucose 331 H 74-106 mg/dL Lactic Acid Level 2.0 0.4-2.0 mmol/L Calcium Level 9.2 8.7-10.4 mg/dL Magnesium Level 1.6 1.6-2.6 mg/dL Total Bilirubin 0.8 0.2-1.0 mg/dL Aspartate Amino Transferase (AST) 188 H 13-40 U/L Alanine Aminotransferase (ALT) 266 H 7-40 U/L Alkaline Phosphatase 246 H 46-116 U/L Total Protein 6.3 5.7-8.2 g/dL Albumin 4.3 3.2-4.8 g/dL Lipase 24 12-53 U/L Beta-Hydroxybutyric Acid 0.959 H < 0.4 mmol/L Plasma/Serum Blood Alcohol < 3.0 <10 mg/dL Time of 1ST Reevaluation: 16:00 Reevaluation 1ST: Unchanged Patient Education/Counseling: Diagnosis, Treatment Family Education/Counseling: No Family Present Comments MDM: patient presented with the above HPI.--GI symptom----workup was initiated. patient was found with the above mentioned diagnosis. the following medications were ordered: please refer to order lists of meds and tests obtained by myself Dr. Tamayo. Patient ED course and VS have been stabilized. Patient has been reassessed in the ED and remained in a stable condition. Pertinent incidental findings were discussed with the patient and/or family. Patient/family voices understanding and is agreeable with plan. Patient has been observed in the ED adequate length of time to insure improvement/stability. Escalation of care considered: Consideration of escalation to observation or admission Patient was ADMITTED to the medicine team for further evaluation and treatment of their presentation. All the reports of any imaging studies that were ordered by myself were reviewed by myself. Departure 1 Departure Time of Disposition: 16:35 Impression: Primary Impression: Elevated LFTs Additional Impressions: Nausea and vomiting Diabetes mellitus with hyperglycemia Marijuana abuse Disposition: ADMITTED INPATIENT Admit to: Tele Condition: Guarded Discharged With: Self Critical Care Note Critical Care Time?: Yes (45 min-critical care time only) Heart Score Heart Score: Heart Score Response (Comments) Value History N/A 0 EKG N/A 0 Age N/A 0 Risk Factors N/A 0 Troponin N/A 0 Total 0 I personally scribed for ANAYELI TAMAYO DO ([email or web address]) on 10/23/24 at 15:50. Electronically submitted by Kiana Keller ([email or web address]). ANAYELI TAMAYO DO Oct 23, 2024 15:50
[2024-10-23] MEDS: ONDANSETRON HCL 4 MG/2 ML VIAL IV ONE (15:58)
[2024-10-23] MEDS: SODIUM CHLORIDE 0.9% 1,000 ML IV ONE ×3 (15:58→19:50)
[2024-10-23 16:04] LABS: Hematocrit 39.2 % (36.0-46.0); Hemoglobin 13.4 g/dL (12.2-16.2); Mean Corpuscular Hemoglobin 29.4 pg (28.0-32.0); Mean Corpuscular Volume 86.2 fL (80.0-100.0); Nucleated Red Blood Cells % 0.0 %
[2024-10-23 16:17] LABS: Alanine Aminotransferase 266 U/L (7-40); Albumin 4.3 g/dL (3.2-4.8); Alkaline Phosphatase 246 U/L (46-116); Anion Gap 11 (5-15); BUN/Creatinine Ratio 22.5 (10.0-20.0); Blood Urea Nitrogen 18 mg/dL (9-23); Calcium 9.2 mg/dL (8.7-10.4); Carbon Dioxide 27 mmol/L (20-31); Chloride 99 mmol/L (98-107); Glucose 331 mg/dL (74-106); Magnesium 1.6 mg/dL (1.6-2.6); Potassium 4.4 mmol/L (3.5-5.1); Sodium 137 mmol/L (136-145); Total Protein 6.3 g/dL (5.7-8.2)
[2024-10-23 16:18] LABS: Bilirubin, Total 0.8 mg/dL (0.2-1.0)
[2024-10-23] MEDS: diphenhdrAMINE HCL 50 MG/1 ML VL IV ONE (17:07)
[2024-10-23] MEDS: InsuLIN REG 1unit/0.01ml Soln (100units/ml) IV ONE (17:17)
[2024-10-23 17:30] VITALS: PULSE 72; RESP 18; O2SAT 98
[2024-10-23] MEDS: PROCHLORPERAZINE EDISYLATE 5 MG/ML 2ML VIAL IV ONE (19:50)
[2024-10-23 19:56] VITALS: PULSE 114; RESP 20; O2SAT 97
[2024-10-23 20:08] LABS: Urine Protein, UAD Negative (Negative)
[2024-10-23 20:20] LABS: Amphetamine Screen, Urine Neg (NEGATIVE); Barbiturate Scree,Urine Neg (NEGATIVE); Benzodiazephine Screen, Urine Neg (NEGATIVE); Cannabinoid Screen, Urine Pos (NEGATIVE); Cocaine Screen, Urine Neg (NEGATIVE); Opiate Scree,Urine Neg (NEGATIVE); Phencyclidine Screen, Urine Neg (NEGATIVE)
--- NOTE | 2024-10-23 20:51 | DVHHP2 ---
Admitting Diagnosis: Nausea and vomiting History of Present Illness 34 y/o F, BIBA, with PMHx of DM presents to the ED for CC of nausea/vomiting. EMS reports, patient is coming from home where she c/o nausea and vomiting x4days. EMS reports, patient tried Zofran and had no relief, Zofran was given again in the field with no change in symptoms. Patient endorses, recently having a surgical x3mlsgk ago and right foot surgery x1week after; believes symptoms to be non-related to either procedure. Patient denies fever, chills, sweats, excessive thirst, or urinary frequency. No other associated symptoms or modifying factors present at this time. Patient denies any complaints regarding her extremity surgery or pertinent to her . Patient denies abdominal pain. Past Medical history: DM Past Surgical history: RIGHT FOOT, SURGICAL Medications: DOXYCYCLINE Social History: Denies smoking, ETOH, and drug use. Allergies: NKA REVIEW OF SYSTEMS: CONSTITUTIONAL: Denies acute: fever, diaphoresis, chills, HEAD: Denies acute: headache, photophobia Eyes: Denies acute: Double vision, vision loss, eye pain, eye discharge. EARS: Denies acute: tinnitus, hearing loss, ear discharge, ear pain, THROAT: Denies acute: sore throat, swelling, difficulty swallowing , pain with swallowing, change in voice. NECK: Denies acute: neck pain, neck swelling, stiff neck. HEART: Denies acute : chest pain, palpitations, LUNGS: Denies acute: SOB, wheezing, cough, hemoptysis ABDOMEN: Denies acute: abdominal pain, diarrhea, melena , hematemesis, hematochezia SKIN: Denies acute: rash, redness, lesions, itchiness. EXTREMITIES: Denies acute: calf pain, numbness, tingling, weakness, denies pain in extremity. Denies acute: Low back pain. Neuro: Denies acute: focal neurological deficit, motor or sensory focal neurological deficit, tremors, seizure like activity, confusion, dizziness, change in mental status, loss of bowel or bladder function, cauda equina like symptoms. : Denies acute: dysuria, hematuria, flank pain, increase in urinary frequency. PSYCH: Denies acute: hallucination, suicidal ideation, homicidal ideation. FEMALE: Denies acute: abnormal vaginal bleeding, foul odor, unusual discharge. Patient Family History: Family history: Diabetes mellitus G8 FATHER Uterine anomaly G8 MOTHER Allergies: Coded Allergies: Metoclopramide (Unverified Allergy, Unknown, pruritis, jaw twitch , 10/08/24) Home Meds Reported Medications Levothyroxine Sodium (Synthroid) 88 Mcg Tab, 1 TAB PO DAILY, #30 TAB 5 Refills 09/12/22 Levothyroxine Sodium (SYNTHROID TABLET) 100 Mcg Tb, 1 TAB PO DAILY, #30 TAB 5 Refills 01/06/20 Insulin Glargine (Lantus) 100 Units/Ml Vial, 42 UNITS SC HS, INJ 10/24/16 [Humalog] No Conflict Check, 1 UNIT SUBCUT AC 11/26/09 Vital Signs Vital Signs Date Time Temp Pulse Resp B/P (MAP) Pulse Ox O2 Delivery O2 Flow Rate FiO2 10/23/24 19:56 98.1 114 18 144/82 (102) 98 98.1 10/23/24 19:56 Room Air* 0 21 Physical Exam General 34 years old woman, well nourished well developed. 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 (10/23/24 ) Electrocardigram (10/23/24 15:36) Vital Signs Date Time Temp Pulse Resp B/P (MAP) Pulse Ox O2 Delivery O2 Flow Rate FiO2 10/23/24 19:56 98.1 114 18 144/82 (102) 98 98.1 10/23/24 19:56 114 20 97 Room Air* 0 21 10/23/24 18:00 64 18 133/77 (95) 98 10/23/24 17:30 72 18 98 Room Air* 0 21 10/23/24 17:23 98.0 88 20 132/98 (109) 95 98.0 10/23/24 16:04 82 20 135/56 (82) 100 Laboratory Tests Test 10/23/24 15:57 Lactic Acid Level 2.0 mmol/L (0.4-2.0) White Blood Count 10.2 10^3/uL (4.4-10.8) Medications Medications Dose Ordered Sig/Jack Route Start Time Stop Time Status Last Admin Dose Admin Diphenhydramine HCl 25 mg ONCE ONCE IV 10/23/24 17:15 10/23/24 17:16 DC 10/23/24 17:07 Insulin Human Regular 5 units ONCE ONCE IV 10/23/24 16:45 10/23/24 16:46 DC 10/23/24 17:17 Ondansetron HCl 8 mg ONCE ONCE IV 10/23/24 15:45 10/23/24 15:46 DC 10/23/24 15:58 Prochlorperazine Edisylate 10 mg ONCE ONCE IV 10/23/24 19:45 10/23/24 19:46 DC 10/23/24 19:50 Sodium Chloride 1,000 ml @ 1,000 mls/hr Q1H ONCE IV 10/23/24 15:45 10/23/24 16:44 DC 10/23/24 15:58 Sodium Chloride 1,000 ml @ 1,000 mls/hr Q1H ONCE IV 10/23/24 16:45 10/23/24 17:44 DC 10/23/24 17:50 Sodium Chloride 1,000 ml @ 1,000 mls/hr Q1H ONCE IV 10/23/24 19:45 10/23/24 20:44 DC 10/23/24 19:50 Results Labs Test 10/23/24 18:50 10/23/24 17:16 10/23/24 15:57 Range/Units Urine Color Light-yellow Yellow Urine Clarity Turbid H Clear Urine pH 8.5 5.0-9.0 Urine Specific [place] 1.015 1.001-1.035 Urine Protein Negative Negative Urine Ketones 1+ H Negative Urine Blood 2+ H Negative /uL Urine Nitrite Negative Negative Urine Bilirubin Negative Negative Urine Urobilinogen Normal Negative mg/dL Urine Leukocyte Esterase Negative Negative /uL Urine RBC 30 0 - 4 /hpf Urine Microscopic WBC 2 0-5 /HPF Urine Squamous Epithelial Cells Mod <5 /hpf Urine Bacteria None seen None Seen /hpf Urine Mucus Few None Seen Urine Glucose 4+ H Normal mg/dL Urine Opiates Screen Neg NEGATIVE Urine Fentanyl Screen Neg NEGATIVE Urine Barbiturates Screen Neg NEGATIVE Urine Phencyclidine Screen Neg NEGATIVE Urine Amphetamines Screen Neg NEGATIVE Urine Benzodiazepines Screen Neg NEGATIVE Urine Cocaine Screen Neg NEGATIVE Urine Cannabinoids Screen Pos NEGATIVE POC Glucose 251 H 70-106 mg/dl White Blood Count 10.2 4.4-10.8 10^3/uL Red Blood Count 4.55 4.0-5.20 10^6/uL Hemoglobin 13.4 12.2-16.2 g/dL Hematocrit 39.2 36.0-46.0 % Mean Corpuscular Volume 86.2 80.0-100.0 fL Mean Corpuscular Hemoglobin 29.4 28.0-32.0 pg Mean Corpuscular Hemoglobin Concent 34.1 32.0-36.0 g/dL Red Cell Distribution Width 14.4 H 11.8-14.3 % Platelet Count 439 140-450 10^3/uL Mean Platelet Volume 6.6 L 6.9-10.8 fL Neutrophils (%) (Auto) 78.3 37.0-80.0 % Lymphocytes (%) (Auto) 14.8 10.0-50.0 % Monocytes (%) (Auto) 5.6 0.0-12.0 % Eosinophils (%) (Auto) 0.1 0.0-7.0 % Basophils (%) (Auto) 1.2 0.0-2.0 % Neutrophils # (Auto) 8.0 1.6-8.6 10 ^3/uL Lymphocytes # (Auto) 1.5 0.4-5.4 10 ^3/uL Monocytes # (Auto) 0.6 0-1.3 10 ^3/uL Eosinophils # (Auto) 0 0-0.8 10 ^3/uL Basophils # (Auto) 0.1 0-0.2 10 ^3/uL Nucleated Red Blood Cells 0.0 % Sodium Level 137 136-145 mmol/L Potassium Level 4.4 3.5-5.1 mmol/L Chloride Level 99 98-107 mmol/L Carbon Dioxide Level 27 20-31 mmol/L Anion Gap 11 5-15 Blood Urea Nitrogen 18 9-23 mg/dL Creatinine 0.80 0.550-1.02 mg/dL Glomerular Filtration Rate Calc 98 >90 mL/min BUN/Creatinine Ratio 22.5 H 10.0-20.0 Serum Glucose 331 H 74-106 mg/dL Lactic Acid Level 2.0 0.4-2.0 mmol/L Calcium Level 9.2 8.7-10.4 mg/dL Magnesium Level 1.6 1.6-2.6 mg/dL Total Bilirubin 0.8 0.2-1.0 mg/dL Aspartate Amino Transferase (AST) 188 H 13-40 U/L Alanine Aminotransferase (ALT) 266 H 7-40 U/L Alkaline Phosphatase 246 H 46-116 U/L Total Protein 6.3 5.7-8.2 g/dL Albumin 4.3 3.2-4.8 g/dL Lipase 24 12-53 U/L Beta-Hydroxybutyric Acid 0.959 H < 0.4 mmol/L Plasma/Serum Blood Alcohol < 3.0 <10 mg/dL Primary Diagnosis Nausea and vomiting likely due to cyclic vomiting syndrome from cannabinoid use Elevated LFT Plan IV fluids Antiemetic Pain control Check ultrasound abdomen to assess for elevated liver enzyme Check acute hepatitis panel Clear liquid advance as tolerated Full code Lovenox for DVT prophylaxis PPI for GI prophylaxis Plan discussed with: Patient Problems List: (1) Diabetes mellitus with hyperglycemia (2) Elevated LFTs Status: Acute (3) Nausea and vomiting Status: Acute Date of Service: Oct 23, 2024 Billing Provider: CE GARRISON MD Common Visit Codes: [id number] INP/OBS CARE (MOD) CE GARRISON MD Oct 23, 2024 20:51
[2024-10-23] MEDS ORDERED: ONDANSETRON HCL 4 MG/2 ML VIAL IV PRN (21:00)
[2024-10-23] MEDS ORDERED: DEXTROSE (50%) 50ML SYRG IV PRN (21:00)
[2024-10-23] MEDS ORDERED: DOCUSATE SOD 100 MG CAP PO PRN (21:00)
[2024-10-23] MEDS ORDERED: ACETAMINOPHEN 325 MG TAB PO PRN (21:00)
[2024-10-23] MEDS: LACTATED RINGER'S 1,000 ML IV ONE (21:12)
[2024-10-23] MEDS: ACCU-CHEK COMFORT CURVE STRIP VI SCH (21:13)
[2024-10-23] MEDS: SODIUM CHLOR 0.9% PF (SALINE LOCK) 10ML VIAL/SYR IV SCH (21:13)
[2024-10-23] MEDS: InsuLIN REG 1unit/0.01ml Soln (100units/ml) SC SCH (21:25)
[2024-10-23 22:14] VITALS: BP_SYST 106; BP_SYST 109; BP_DIAS 55; BP_DIAS 59; PULSE 83; PULSE 93; RESP 17; TEMP 99; TEMP 99.2; O2SAT 94; O2SAT 95
[2024-10-23] MEDS: HEPARIN SODIUM (PORCINE) 5000 UNITS/ML 1ML VIAL SC SCH (22:56)
[2024-10-24] VITALS (7 sets, daily range): BP systolic 97–114; BP diastolic 43–65; PULSE 83–96; RESP 16–18; TEMP 96.4–99.2; O2SAT 67–97
[2024-10-24] MEDS: PROCHLORPERAZINE EDISYLATE 5 MG/ML 2ML VIAL IV PRN (05:21)
[2024-10-24 06:45] LABS: Hematocrit 35.2 % (36.0-46.0); Hemoglobin 12.0 g/dL (12.2-16.2); Mean Corpuscular Hemoglobin 29.8 pg (28.0-32.0); Mean Corpuscular Volume 87.4 fL (80.0-100.0); Nucleated Red Blood Cells % 0.0 %
[2024-10-24 06:56] LABS: Alanine Aminotransferase 190 U/L (7-40); Albumin 3.7 g/dL (3.2-4.8); Alkaline Phosphatase 205 U/L (46-116); Anion Gap 15 (5-15); BUN/Creatinine Ratio 21.7 (10.0-20.0); Blood Urea Nitrogen 18 mg/dL (9-23); Calcium 8.8 mg/dL (8.7-10.4); Carbon Dioxide 21 mmol/L (20-31); Chloride 100 mmol/L (98-107); Glucose 389 mg/dL (74-106); Potassium 4.2 mmol/L (3.5-5.1); Sodium 136 mmol/L (136-145); Total Protein 5.7 g/dL (5.7-8.2)
[2024-10-24 06:57] LABS: Bilirubin, Total 0.8 mg/dL (0.2-1.0)
[2024-10-24] MEDS ORDERED: ENOXAPARIN SOD 40 MG/0.4 ML SYRINGE SC SCH (10:00)
--- NOTE | 2024-10-24 14:28 | DVHPN2 ---
Reviewed: Care Plan, H&P, Labs, Medications, Previous Orders Changes from previous H/P or p: No Changes General: Per HPI Objective Vitals Vital Signs Date Time Temp Pulse Resp B/P (MAP) Pulse Ox O2 Delivery O2 Flow Rate FiO2 10/24/24 09:00 96.4 96 18 106/49 (68) 94 96.4 10/24/24 08:00 Room Air* 0 21 Intake/Output Intake and Output 10/24/24 07:00 Intake Total 225 ml Balance 225 ml Intake Oral 225 ml Medications Current Medications Medications Dose Ordered Sig/Jack Route Start Time Stop Time Status Last Admin Dose Admin Sodium Chloride 10 ml Q8HR IV 10/23/24 22:00 10/24/24 12:31 10 ML Docusate Sodium 100 mg BIDPRN PRN PO 10/23/24 21:00 Acetaminophen 650 mg Q6HP PRN PO 10/23/24 21:00 Acetaminophen/ Hydrocodone Bitart 1 tab Q4HP PRN PO 10/23/24 21:00 Diagnostic Test (Pha) 1 strip ACHS 10/23/24 22:00 10/24/24 11:48 1 STRIP Insulin Human Regular ACHS SC 10/23/24 22:00 10/24/24 11:55 4 UNITS Dextrose 50 ml UD PRN IV 10/23/24 21:00 Heparin Sodium (Porcine) 5,000 units Q12HR SC 10/23/24 22:00 10/24/24 10:28 5,000 UNITS Prochlorperazine Edisylate 10 mg Q4HPRN PRN IV 10/23/24 22:00 10/24/24 05:21 10 MG Laboratory Results Laboratory Tests 10/24/24 05:51 Chemistry Test 10/23/24 15:57 10/24/24 05:51 Albumin 4.3 g/dL (3.2-4.8) 3.7 g/dL (3.2-4.8) Calcium Level 9.2 mg/dL (8.7-10.4) 8.8 mg/dL (8.7-10.4) Magnesium Level 1.6 mg/dL (1.6-2.6) Total Protein 6.3 g/dL (5.7-8.2) 5.7 g/dL (5.7-8.2) Lipid panel Test 10/23/24 15:57 Lipase 24 U/L (12-53) LFT Test 10/23/24 15:57 10/24/24 05:51 Alanine Aminotransferase (ALT) 266 U/L (7-40) H 190 U/L (7-40) H Alkaline Phosphatase 246 U/L (46-116) H 205 U/L (46-116) H Aspartate Amino Transferase (AST) 188 U/L (13-40) H 96 U/L (13-40) H Total Bilirubin 0.8 mg/dL (0.2-1.0) 0.8 mg/dL (0.2-1.0) Urinalysis Test 10/23/24 18:50 Urine Color Light-yellow (Yellow) Urine Clarity Turbid (Clear) H Urine pH 8.5 (5.0-9.0) Urine Specific [place] 1.015 (1.001-1.035) Urine Protein Negative (Negative) Urine Ketones 1+ (Negative) H Urine Blood 2+ /uL (Negative) H Urine Nitrite Negative (Negative) Urine Bilirubin Negative (Negative) Urine Urobilinogen Normal mg/dL (Negative) Urine Leukocyte Esterase Negative /uL (Negative) Urine RBC 30 /hpf (0 - 4) Urine Microscopic WBC 2 /HPF (0-5) Urine Squamous Epithelial Cells Mod /hpf (<5) Urine Bacteria None seen /hpf (None Seen) Urine Mucus Few (None Seen) Urine Glucose 4+ mg/dL (Normal) H Assessment/Plan Assessment/Plan 34 y/o F, BIBA, with PMHx of DM presents to the ED for CC of nausea/vomiting. EMS reports, patient is coming from home where she c/o nausea and vomiting x4days. EMS reports, patient tried Zofran and had no relief, Zofran was given again in the field with no change in symptoms. Patient endorses, recently having a surgical [id number] ago and right foot surgery x1week after; believes symptoms to be non-related to either procedure. Patient denies fever, chills, sweats, excessive thirst, or urinary frequency. No other associated symptoms or modifying factors present at this time. Patient denies any complaints regarding her extremity surgery or pertinent to her . Patient denies abdominal pain. intractable nausea/vomiting acute abd pain marijuana use DM type II obesity dehydration 10/24/2024: still nauseated Plan discussed with: Patient Date of Service: Oct 24, 2024 Billing Provider: SHAI ALEXANDER DO Common Visit Codes: [id number] INP/OBS CARE(HIGH) SHAI ALEXANDER DO Oct 24, 2024 14:28
[2024-10-24] MEDS: HYDROcodone-ACET 5/325MG TAB PO PRN (21:36)
--- NOTE | 2024-10-24 21:38 | DVHINCON2 ---
Date of service: Oct 24, 2024 Referring Physician Ehsan Perez Reason for Consultation N/V History of Present Illness 34 y/o F, BIBA, with PMHx of DM presents to the ED for CC of nausea/vomiting. EMS reports, patient is coming from home where she c/o nausea and vomiting x4days. Patient endorses, recently having a surgical [id number] ago and right foot surgery x1week after; believes symptoms to be non-related to either procedure. Patient denies abdominal pain.No recent endoscopy Past Medical History Past Medical history: DM Pancreatitis Past Surgical History Past Surgical history: RIGHT FOOT, SURGICAL ; cholecystectomy Family History: FH: cancer grandfather grandmother Family history: Diabetes mellitus G8 FATHER Prostate carcinoma grandfather Uterine anomaly G8 MOTHER Allergies: Coded Allergies: Metoclopramide (Unverified Allergy, Unknown, pruritis, jaw twitch , ) Home Meds Reported Medications Levothyroxine Sodium (Synthroid) 88 Mcg Tab, 1 TAB PO DAILY, #30 TAB 5 Refills 09/12/22 Levothyroxine Sodium (SYNTHROID TABLET) 100 Mcg Tb, 1 TAB PO DAILY, #30 TAB 5 Refills 01/06/20 Insulin Glargine (Lantus) 100 Units/Ml Vial, 42 UNITS SC HS, INJ 10/24/16 [Humalog] No Conflict Check, 1 UNIT SUBCUT AC 11/26/09 Current Medications Current Medications Medications (Trade) Dose Ordered Sig/Jack Route PRN Reason Start Time Stop Time Status Last Admin Sodium Chloride (Saline Lock Ns) 10 ml Q8HR IV 10/23/24 22:00 10/24/24 12:31 Enoxaparin Sodium (Lovenox) 40 mg DAILY SC 10/24/24 10:00 10/23/24 21:52 DC Diagnostic Test (Pha) (Accu-Chek Comfort Curve T) 1 strip ACHS 10/23/24 22:00 10/24/24 17:04 Insulin Human Regular (InsuLIN R) ACHS SC 10/23/24 22:00 10/24/24 17:05 Heparin Sodium (Porcine) 5,000 units Q12HR SC 10/23/24 22:00 10/24/24 10:28 Prochlorperazine Edisylate (Compazine Inj) 10 mg Q4HPRN PRN IV NAUSEA OR VOMITING 7/23/25 22:00 10/24/24 17:09 Vital Signs Vital Signs Date Time Temp Pulse Resp B/P (MAP) Pulse Ox O2 Delivery O2 Flow Rate FiO2 10/24/24 20:00 Room Air* 0 21 10/24/24 17:00 98.1 90 16 114/57 (76) 97 98.1 Physical Exam Hemodynamically stable no localizing sign Full physical examination deferred Labs/Diagnostic Data Labs Test 10/24/24 16:56 10/24/24 05:51 10/23/24 18:50 10/23/24 15:57 Range/Units POC Glucose 142 H 70-106 mg/dl White Blood Count 11.0 H 4.4-10.8 10^3/uL Red Blood Count 4.03 4.0-5.20 10^6/uL Hemoglobin 12.0 L 12.2-16.2 g/dL Hematocrit 35.2 #L 36.0-46.0 % Mean Corpuscular Volume 87.4 80.0-100.0 fL Mean Corpuscular Hemoglobin 29.8 28.0-32.0 pg Mean Corpuscular Hemoglobin Concent 34.0 32.0-36.0 g/dL Red Cell Distribution Width 15.0 H 11.8-14.3 % Platelet Count 395 140-450 10^3/uL Mean Platelet Volume 7.0 6.9-10.8 fL Neutrophils (%) (Auto) 74.8 37.0-80.0 % Lymphocytes (%) (Auto) 17.8 10.0-50.0 % Monocytes (%) (Auto) 6.9 0.0-12.0 % Eosinophils (%) (Auto) 0.0 0.0-7.0 % Basophils (%) (Auto) 0.5 0.0-2.0 % Neutrophils # (Auto) 8.2 1.6-8.6 10 ^3/uL Lymphocytes # (Auto) 2.0 0.4-5.4 10 ^3/uL Monocytes # (Auto) 0.8 0-1.3 10 ^3/uL Eosinophils # (Auto) 0 0-0.8 10 ^3/uL Basophils # (Auto) 0.1 0-0.2 10 ^3/uL Nucleated Red Blood Cells 0.0 % Sodium Level 136 136-145 mmol/L Potassium Level 4.2 3.5-5.1 mmol/L Chloride Level 100 98-107 mmol/L Carbon Dioxide Level 21 20-31 mmol/L Anion Gap 15 5-15 Blood Urea Nitrogen 18 9-23 mg/dL Creatinine 0.83 0.550-1.02 mg/dL Glomerular Filtration Rate Calc 94 >90 mL/min BUN/Creatinine Ratio 21.7 H 10.0-20.0 Serum Glucose 389 H 74-106 mg/dL Calcium Level 8.8 8.7-10.4 mg/dL Total Bilirubin 0.8 0.2-1.0 mg/dL Aspartate Amino Transferase (AST) 96 H 13-40 U/L Alanine Aminotransferase (ALT) 190 H 7-40 U/L Alkaline Phosphatase 205 H 46-116 U/L Total Protein 5.7 5.7-8.2 g/dL Albumin 3.7 3.2-4.8 g/dL Urine Color Light-yellow Yellow Urine Clarity Turbid H Clear Urine pH 8.5 5.0-9.0 Urine Specific [place] 1.015 1.001-1.035 Urine Protein Negative Negative Urine Ketones 1+ H Negative Urine Blood 2+ H Negative /uL Urine Nitrite Negative Negative Urine Bilirubin Negative Negative Urine Urobilinogen Normal Negative mg/dL Urine Leukocyte Esterase Negative Negative /uL Urine RBC 30 0 - 4 /hpf Urine Microscopic WBC 2 0-5 /HPF Urine Squamous Epithelial Cells Mod <5 /hpf Urine Bacteria None seen None Seen /hpf Urine Mucus Few None Seen Urine Glucose 4+ H Normal mg/dL Urine Opiates Screen Neg NEGATIVE Urine Fentanyl Screen Neg NEGATIVE Urine Barbiturates Screen Neg NEGATIVE Urine Phencyclidine Screen Neg NEGATIVE Urine Amphetamines Screen Neg NEGATIVE Urine Benzodiazepines Screen Neg NEGATIVE Urine Cocaine Screen Neg NEGATIVE Urine Cannabinoids Screen Pos NEGATIVE Lactic Acid Level 2.0 0.4-2.0 mmol/L Magnesium Level 1.6 1.6-2.6 mg/dL Lipase 24 12-53 U/L Beta-Hydroxybutyric Acid 0.959 H < 0.4 mmol/L Plasma/Serum Blood Alcohol < 3.0 <10 mg/dL Microbiology Date/Time Source Procedure Growth Status 10/23/24 21:10 Nose MRSA Screen - Final Complete Problems(with codes): (1) Diabetes mellitus with hyperglycemia (2) Elevated LFTs (3) Nausea and vomiting (4) Marijuana abuse (5) Fatty liver Plan/Recommendation PLAN Intractable nausea and vomiting possibly related to cyclical vomiting syndrome from marijuana Patient also has had two recent surgeries and may have developed some GERD or gastritis I will keep her NPO after midnight to discuss possible endoscopy Continue PPI and Zofran Elevated liver enzymes may be part of a systemic inflammatory response Check right upper quadrant ultrasound hepatitis panel ROBB, monitor labs Plan discussed with: Other (None) TRACI FERRARA MD Oct 24, 2024 21:38
--- NOTE | 2024-10-24 23:33 | DVH ---
INDICATION: elevated liver tests TECHNIQUE: Multiple real-time sonographic images of the abdomen were obtained. COMPARISON: None FINDINGS: Liver is normal in size measuring 15 cm and echogenicity with No lesions identified. Prior cholycyste ctomy. No evidence of intrahepatic biliary ductal dilatation. Common bile duct was not adequately vis ualized. Visualized pancreas appears unremarkable. Right kidney measures 10.7 cm and is normal in siz e, contour echogenicity and cortical thickness. No hydronephrosis. No free fluid noted. IMPRESSION: No acute abnormality identified. Cholecystectomy. Common bile duct not adequately visualized.
[2024-10-25] VITALS (9 sets, daily range): BP systolic 108–122; BP diastolic 64–72; PULSE 56–82; RESP 16–20; TEMP 36.8; O2SAT 93–100
[2024-10-25 06:46] LABS: Hematocrit 36.3 % (36.0-46.0); Hemoglobin 12.4 g/dL (12.2-16.2); Mean Corpuscular Hemoglobin 29.2 pg (28.0-32.0); Mean Corpuscular Volume 85.4 fL (80.0-100.0); Nucleated Red Blood Cells % 0.0 %
[2024-10-25 06:50] LABS: Albumin 3.4 g/dL (3.2-4.8); Anion Gap 10 (5-15); BUN/Creatinine Ratio 19.6 (10.0-20.0); Blood Urea Nitrogen 10 mg/dL (9-23); Carbon Dioxide 25 mmol/L (20-31); Chloride 105 mmol/L (98-107); Glucose 91 mg/dL (74-106); Sodium 140 mmol/L (136-145)
[2024-10-25 06:51] LABS: Bilirubin, Total 0.4 mg/dL (0.2-1.0)
[2024-10-25 06:52] LABS: Alanine Aminotransferase 147 U/L (7-40); Alkaline Phosphatase 177 U/L (46-116); Calcium 8.0 mg/dL (8.7-10.4); Potassium 3.2 mmol/L (3.5-5.1); Total Protein 5.3 g/dL (5.7-8.2)
[2024-10-25 10:49] LABS: Hepatitis A Total Antibody Positive (Negative); Hepatitis B Surface Antigen Negative (Negative); Hepatitis C Antibody Negative (Negative)
--- NOTE | 2024-10-25 11:08 | DVHDS2 ---
Discharge Summary Date of Admission Oct 23, 2024 at 20:51 Date of Discharge: Oct 25, 2024 Labs/Diagnostic Data: Laboratory Results Test 10/25/24 05:49 10/25/24 05:47 10/23/24 18:50 10/23/24 15:57 White Blood Count 6.8 10^3/uL (4.4-10.8) Red Blood Count 4.25 10^6/uL (4.0-5.20) Hemoglobin 12.4 g/dL (12.2-16.2) Hematocrit 36.3 % (36.0-46.0) Mean Corpuscular Volume 85.4 fL (80.0-100.0) Mean Corpuscular Hemoglobin 29.2 pg (28.0-32.0) Mean Corpuscular Hemoglobin Concent 34.2 g/dL (32.0-36.0) Red Cell Distribution Width 14.3 % (11.8-14.3) Platelet Count 417 10^3/uL (140-450) Mean Platelet Volume 6.5 fL (6.9-10.8) Neutrophils (%) (Auto) 58.1 % (37.0-80.0) Lymphocytes (%) (Auto) 30.6 % (10.0-50.0) Monocytes (%) (Auto) 10.3 % (0.0-12.0) Eosinophils (%) (Auto) 0.3 % (0.0-7.0) Basophils (%) (Auto) 0.7 % (0.0-2.0) Neutrophils # (Auto) 3.9 10 ^3/uL (1.6-8.6) Lymphocytes # (Auto) 2.1 10 ^3/uL (0.4-5.4) Monocytes # (Auto) 0.7 10 ^3/uL (0-1.3) Eosinophils # (Auto) 0 10 ^3/uL (0-0.8) Basophils # (Auto) 0 10 ^3/uL (0-0.2) Nucleated Red Blood Cells 0.0 % Sodium Level 140 mmol/L (136-145) Potassium Level 3.2 mmol/L (3.5-5.1) Chloride Level 105 mmol/L (98-107) Carbon Dioxide Level 25 mmol/L (20-31) Anion Gap 10 (5-15) Blood Urea Nitrogen 10 mg/dL (9-23) Creatinine 0.51 mg/dL (0.550-1.02) Glomerular Filtration Rate Calc 125 mL/min (>90) BUN/Creatinine Ratio 19.6 (10.0-20.0) Serum Glucose 91 mg/dL (74-106) Calcium Level 8.0 mg/dL (8.7-10.4) Total Bilirubin 0.4 mg/dL (0.2-1.0) Aspartate Amino Transferase (AST) 71 U/L (13-40) Alanine Aminotransferase (ALT) 147 U/L (7-40) Alkaline Phosphatase 177 U/L (46-116) Total Protein 5.3 g/dL (5.7-8.2) Albumin 3.4 g/dL (3.2-4.8) Hepatitis A Antibody Total Positive (Negative) Hepatitis B Surface Antigen Negative (Negative) Hepatitis B Surface Antibody Positive (Negative) Hepatitis B Core Total Antibody Negative (Negative) Hepatitis C Antibody Negative (Negative) POC Glucose 96 mg/dl (70-106) Urine Color Light-yellow (Yellow) Urine Clarity Turbid (Clear) Urine pH 8.5 (5.0-9.0) Urine Specific [place] 1.015 (1.001-1.035) Urine Protein Negative (Negative) Urine Ketones 1+ (Negative) Urine Blood 2+ /uL (Negative) Urine Nitrite Negative (Negative) Urine Bilirubin Negative (Negative) Urine Urobilinogen Normal mg/dL (Negative) Urine Leukocyte Esterase Negative /uL (Negative) Urine RBC 30 /hpf (0 - 4) Urine Microscopic WBC 2 /HPF (0-5) Urine Squamous Epithelial Cells Mod /hpf (<5) Urine Bacteria None seen /hpf (None Seen) Urine Mucus Few (None Seen) Urine Glucose 4+ mg/dL (Normal) Urine Opiates Screen Neg (NEGATIVE) Urine Fentanyl Screen Neg (NEGATIVE) Urine Barbiturates Screen Neg (NEGATIVE) Urine Phencyclidine Screen Neg (NEGATIVE) Urine Amphetamines Screen Neg (NEGATIVE) Urine Benzodiazepines Screen Neg (NEGATIVE) Urine Cocaine Screen Neg (NEGATIVE) Urine Cannabinoids Screen Pos (NEGATIVE) Lactic Acid Level 2.0 mmol/L (0.4-2.0) Magnesium Level 1.6 mg/dL (1.6-2.6) Lipase 24 U/L (12-53) Beta-Hydroxybutyric Acid 0.959 mmol/L (< 0.4) Plasma/Serum Blood Alcohol < 3.0 mg/dL (<10) Other Laboratory Tests 10/25/24 05:49 Brief Hx & Hospital Course: 34 y/o F, MARGY, with PMHx of DM presents to the ED for CC of nausea/vomiting. EMS reports, patient is coming from home where she c/o nausea and vomiting x4days. EMS reports, patient tried Zofran and had no relief, Zofran was given again in the field with no change in symptoms. Patient endorses, recently having a surgical [id number] ago and right foot surgery x1week after; believes symptoms to be non-related to either procedure. Patient denies fever, chills, sweats, excessive thirst, or urinary frequency. No other associated symptoms or modifying factors present at this time. Patient denies any complaints regarding her extremity surgery or pertinent to her . Patient denies abdominal pain. intractable nausea/vomiting acute abd pain marijuana use DM type II Elevated LFT dehydration obesity 10/25/2024 improved today, discharged to home Condition at Discharge: Critical Final Diagnosis/Problems List see above Discharge Disposition: Home Discharge Instruct/Medications Diet: Cardiac 2g Na,low cholest Activity: No Restrictions, As Tolerated Scheduled Insulin Glargine (Lantus), 42 UNITS SC HS, (Reported) Levothyroxine Sodium (Synthroid Tablet), 1 TAB PO DAILY, (Reported) Levothyroxine Sodium (Synthroid), 1 TAB PO DAILY, (Reported) [Humalog], 1 UNIT SUBCUT AC, (Reported) Discharge Statement: "Patient was advised to return to the ER or call 911 if any headaches, dizziness, shortness of breath, chest pain, abdominal pain, bleeding, fevers, or worsening of medical condition. Patient was counseled about treatment plan, medications, possible side effects, patientverbalized understanding. All questions were answered to the best of my ability. This discharge took greater then 30 minutes in planning, reviewing documentation, counseling the patient, and discussing with other team members." ASSESSMENT ASSESSMENT Assessment Date of Service: Oct 25, 2024 Billing Provider: SHAI ALEXANDER DO Common Visit Codes: [id number] DISCH DAY >30min SHAI ALEXANDER DO Oct 25, 2024 11:08
[2024-10-25] MEDS ORDERED: SODIUM CHLORIDE LOCK 10 ML ONE (15:25)
[2024-10-25] MEDS: LIDOCAINE VISCOUS 2% 15ML UD ONE (16:12)
[2024-10-25] MEDS: diphenhdrAMINE HCL 50 MG/1 ML VL ONE (16:12)
[2024-10-25] MEDS: fentaNYL CITRATE 100 MCG/2 ML VL ONE (16:12)
[2024-10-25] MEDS: MIDAZOLAM HCL 5 MG/ML-1ML VIAL ONE (16:12)
--- NOTE | 2024-10-25 16:23 | DVHOP2 ---
Operative Report DATE OF OPERATION: 10/25/24 PROCEDURE: Upper Endoscopy with biopsy. PREOPERATIVE INDICATION: The patient is a 34 -year-old female undergoing endoscopy for nausea and vomiting intractable POSTOPERATIVE DIAGNOSES: 1. 2 cm sliding-type hiatal hernia with grade B erosive esophagitis and some distal esophageal ulcerations at the GE junction 2. Mild gastritis with some flecks of old blood and mild pylorospasm otherwise normal examination of the 2nd and 3rd part of the duodenum PROCEDURE PERFORMED BY: Traci Mar GI NURSE: Jessica SCOPE: Olympus videoendoscope. ASA CLASS: 2. PREOPERATIVE MEDICATIONS: Versed 3 mg, Fentanyl 75 mcg, Benadryl 50 mg I administered moderate sedation throughout this _8_ minutes procedure. An independent trained observer pushed medications at my direction, and monitored the patient's level of consciousness and physiological status throughout. PROCEDURE IN DETAIL: After obtaining an informed consent, the patient was placed on left lateral decubitus position. The patient was then sedated with the above medications. A bite block was placed between her teeth. The endoscope was then passed through the oropharynx, into the esophagus, and through the stomach and pylorus up to the second and third part of the duodenum. The endoscope was then withdrawn. The 2nd and 3rd part of the duodenal and the duodenal bulb were normal. There was mild pylorospasm The pre-pyloric area antrum and body showed mild gastritis with some flecks of old blood and hyperemia especially in the proximal stomach Duodenal and gastric biopsies were obtained. The endoscope was then withdrawn into the distal esophagus. Patient had a 2 cm sliding-type hiatal hernia with grade B erosive esophagitis with some linear GE junction esophageal ulcers from which biopsies were obtained The remaining distal and proximal esophagus and oropharynx were unremarkable The patient tolerated the procedure well without difficulty. COMPLICATIONS : None SPECIMENS: Duodenal Biopsies Gastric biopsies GE junction biopsies DISPOSITION: Transfer back to the floor Stable PLAN: 1. Await for biopsy result 2. Will place pt on Protonix 40 mg bid 3. Carafate 1 g p.o. twice a day 4. Zofran mg p.o. twice a day as needed for nausea 5. Resume GI soft mechanical diet advance as tolerated 6. Outpatient follow up with me in 4-6 weeks to review results and discuss further management TRACI MAR MD Oct 25, 2024 16:23
== END 2024-10-25 19:02 | disposition home or self-care (01) | DRG 241 ==
LOC: EDUNIT# 15:34 → EDBD 15:34 → ER 15:34 → OVERFLOW 20:51 → CENTRAL 22:14
PROVIDERS: ADMIT Internal Medicine; ATTEND Internal Medicine
PROC: 0DB98ZX Excision of Duodenum, Via Natural or Artificial Opening Endoscopic, Diagnostic (ICD-10-PCS; 2024-10-25)
PROC: 0DB68ZX Excision of Stomach, Via Natural or Artificial Opening Endoscopic, Diagnostic (ICD-10-PCS; 2024-10-25)
PROC: 0DB48ZX Excision of Esophagogastric Junction, Via Natural or Artificial Opening Endoscopic, Diagnostic (ICD-10-PCS; principal; 2024-10-25 16:10)
DX: K29.70 Gastritis, unspecified, without bleeding (principal); K22.10 Ulcer of esophagus without bleeding; K31.3 Pylorospasm, not elsewhere classified; K25.9 Gastric ulcer, unspecified as acute or chronic, without hemorrhage or perforation; E11.65 Type 2 diabetes mellitus with hyperglycemia; F12.10 Cannabis abuse, uncomplicated; E66.9 Obesity, unspecified; E86.0 Dehydration; K44.9 Diaphragmatic hernia without obstruction or gangrene; R79.89 Other specified abnormal findings of blood chemistry; Z68.26 Body mass index [BMI] 26.0-26.9, adult; Z90.49 Acquired absence of other specified parts of digestive tract; Z83.3 Family history of diabetes mellitus
CPT/HCPCS: 36415; 43239; 45385; 76705; 80053; 80307; 80320; 81001; 82010; 82962; 83605; 83690; 83735; 84702; 85025; 86038; 86704; 86706; 86708; 86803; 87081; 87340; 96374; 96375; G0378; J1815; J2250; J2405